=== PATIENT | female | born 1950 | race African-American/Black ===

== ENCOUNTER 2016-04-04 09:51 | Emergency (ER) | payer MEDICAID ==
[~2016-04-04] VITALS: Ht 160 cm; Wt 93.9 kg
[~2016-04-04 09:51] MED LIST: ALBUTEROL SULF8.5 GM INH; ATIVAN2 MG PO; AZITHROMYCIN250 MG ORAL; CEPHALEXIN500 MG ORAL; DICYCLOMINE HCL10 MG PO; GUAIFENESIN-CO118 M1 ORAL; HYDROCHLOROTH12.5 M2 ORAL; HYDROCHLOROTHIA25 MG PO; IBUPROFEN600 MG ORAL; MAGIC MOUTH WAS60 ML *; MECLIZINE HCL25 MG PO; MIRTAZAPINE30 MG PO; NEURONTIN300 MG ORAL; NORCO 5-325 TA1 EACH ORAL; PHENERGAN6.25 MG/5 ORAL; PROMETHAZINE-C118 M1 ORAL; TRAZODONE HCL150 MG ORAL; ZESTRIL5 MG PO; ZITHROMAX250 MG ORAL; ZOFRAN4 MG ORAL; ZOFRAN4 MG PO
[2016-04-04] MEDS ORDERED: IBUPROFEN600 MG ORAL (10:32)
[2016-04-04] MEDS ORDERED: ROBAXIN-750750 MG PO (10:32)
[2016-04-04 10:38] VITALS: BP 133/82
--- NOTE | 2016-04-04 10:39 | Emergency Room Report ---
History of Present Illness General Chief Complaint: Lower Extremity Injury Source: Patient Present Illness HPI Patient presents with complaints of left knee pain Patient had a fall last Wednesday In the laundry room Patient reports that she has fallen before but did not say anything With this experience patient reports the floor was wet She feels that the floor was also greasy And essentially slipped fell onto her left knee With pain to the medial aspect and also the upper calf area Patient was seen by her primary physician had x-rays ordered However those are pending and in the meanwhile patient presents for continued discomfort Denies any pelvic pain denies any ankle pain Denies any loss of consciousness Pain is 5-6/10 localized to the medial left knee and also the posterior proximal calf area Allergies: Coded Allergies: PENICILLINS (Verified Allergy, Severe, Hives, 03/21/14) Patient History Past Medical History: see triage record Pertinent Family History: none Reviewed Nursing Documentation: PMH: Agreed, PSxH: Agreed Nursing Documentation-PMH Past Medical History: No History, Except For Hx Cardiac Problems: Yes Hx Hypertension: Yes Hx COPD: Yes Hx Diabetes: Yes Hx Cancer: No Hx Gastrointestinal Problems: No Hx Neurological Problems: No Review of Systems All Other Systems: negative except mentioned in HPI Physical Exam Vital Signs Date Time Temp Pulse Resp B/P Pulse Ox O2 Delivery O2 Flow Rate FiO2 04/04/16 10:05 98.1 79 17 133/82 95 Room Air Sp02 EP Interpretation: reviewed, normal General Appearance: no apparent distress Head: normocephalic, atraumatic Eyes: bilateral eye EOMI, bilateral eye PERRL ENT: hearing grossly normal, normal pharynx, TMs + canals normal, uvula midline Neck: full range of motion, supple, no meningismus, no bony tend Respiratory: lungs clear, normal breath sounds, no rhonchi, no respiratory distress, no retraction, no accessory muscle use Cardiovascular #1: normal peripheral pulses, regular rate, rhythm, no edema, no gallop, no JVD, no murmur Gastrointestinal: normal bowel sounds, non tender, soft, no mass, no organomegaly, non-distended, no guarding, no hernia, no pulsatile mass, no rebound Genitourinary: no CVA tenderness Musculoskeletal: other - No obvious swelling or effusion, patient discomfort on palpation of the medial aspect of the knee, also approximately on the posterior calf no swelling or edema, full extension flexion at the knee is intact, however when the patient extends the leg she feels increased discomfort at the knee, Neurologic: oriented x3, responsive, composite engineer III-XII nml as tested, motor strength/ tone normal, sensory intact Psychiatric: mood/affect normal Skin: normal color, no rash, warm/dry, palpation normal Lymphatic: normal inspection, no adenopathy Medical Decision Making Diagnostic Impression: Primary Impression: Injury of lower extremity Additional Impression: left knee sprain ER Course Patient appears to have findings in line with a knee contusion and sprain Differential for fracture is low given lack of any ecchymosis or swelling for the past 7 days Consideration for DVT is also made However patient's mechanism sounds to be mechanical nature Patient was provided with anti-inflammatory muscle relaxers and will have initial conservative outpatient trial Last Vital Signs Date Time Temp Pulse Resp B/P Pulse Ox O2 Delivery O2 Flow Rate FiO2 04/04/16 10:05 98.1 79 17 133/82 95 Room Air Status: unchanged Disposition: HOME, SELF-CARE Condition: Stable Scripts Methocarbamol* (ROBAXIN-750*) 750 Mg Tablet 750 MG PO TID, #21 TAB 0 Refills Prov: RONAN RUSSO D.O. 04/04/16 Ibuprofen* (MOTRIN*) 600 Mg Tablet 600 MG ORAL Q8H Y for For Pain, #20 TAB 0 Refills Prov: RONAN RUSSO D.O. 04/04/16 Referrals: MITCH LONG (PCP) Patient Instructions: Knee Sprain, [id number]-fr-[id number] Additional Instructions: Patient is provided with the discharge instructions notified to follow up with primary doctor in the next 2-3 days otherwise return to the er with any worsening symptoms. RONAN RUSSO D.O. Apr 04, 2016 10:39
== END 2016-04-04 10:41 | disposition home or self-care (01) ==
LOC: EMR 10:24
DX: S83.92XA Sprain of unspecified site of left knee, initial encounter (principal); W01.0XXA Fall on same level from slipping, tripping and stumbling without subsequent striking against object, initial encounter; Y92.008 Other place in unspecified non-institutional (private) residence as the place of occurrence of the external cause; Y99.8 Other external cause status; I10 Essential (primary) hypertension; J44.9 Chronic obstructive pulmonary disease, unspecified; E11.9 Type 2 diabetes mellitus without complications; Z88.0 Allergy status to penicillin
CPT/HCPCS: 82962; 99284

== ENCOUNTER 2017-06-11 13:17 | Inpatient (IN) | payer MEDICAID ==
[~2017-06-11] VITALS: Ht 160 cm; Wt 90.7 kg
[~2017-06-11 13:17] MED LIST changes: +ROBAXIN-750750 MG PO
--- NOTE | 2017-06-11 14:08 | Emergency Room Report ---
History of Present Illness General Chief Complaint: Abnormal Labs Source: Patient Present Illness HPI The patient presents with 4 days of weakness and inability to eat. She's been vomiting and had some diarrhea. Also her blood sugars have been high. She is on metformin and a second oral medication. She's never been on insulin before. She's lost weight. She has polyuria and polydipsia. Denies any chest pain but has some lower abdominal pain which is intermittent. She denies any dysuria. She feels weak. She denies any fevers or chills. She also has a slight occipital headache. Pain in her abdomen is rated 8/10, crampy pressure. The patient has diabetes, hypertension and has had 4 stents in the past. She is anxious and depressed. No calf pain, edema. She has had abdominal pain in the past. Allergies: Coded Allergies: PENICILLINS (Verified Allergy, Severe, Hives, 03/21/14) Patient History Past Medical History: see triage record Past Surgical History: appy, hysterectomy Social History: Denies: smoking, alcohol use Social History Narrative at home Reviewed Nursing Documentation: PMH: Agreed; PSxH: Agreed Nursing Documentation-PMH Hx Cardiac Problems: Yes Hx Hypertension: Yes Hx COPD: Yes Hx Diabetes: Yes Hx Cancer: No Hx Gastrointestinal Problems: No Hx Neurological Problems: No Review of Systems All Other Systems: negative except mentioned in HPI Physical Exam Vital Signs Date Time Temp Pulse Resp B/P (MAP) Pulse Ox O2 Delivery O2 Flow Rate FiO2 06/11/17 13:28 98.6 93 20 137/89 99 Room Air 98.6 Sp02 EP Interpretation: reviewed, normal General Appearance: well appearing, no apparent distress, GCS 15 Head: normocephalic Eyes: bilateral eye normal inspection ENT: moist mucus membranes Neck: full range of motion, supple Respiratory: lungs clear, normal breath sounds Cardiovascular #1: regular rate, rhythm Cardiovascular #2: 2+ radial (R) Gastrointestinal: normal inspection, normal bowel sounds, no mass, non- distended, no guarding, no rebound, tenderness Musculoskeletal: back normal, gait/station normal, normal range of motion Neurologic: alert, oriented x3, grossly normal Psychiatric: depressed affect, anxious Skin: normal inspection, warm/dry Medical Decision Making Diagnostic Impression: Primary Impression: Hyperglycemia Additional Impressions: Persistent vomiting Abdominal pain Qualified Codes: R10.84 - Generalized abdominal pain Anxiety ER Course Patient presents with 4 days of vomiting, polyuria polydipsia and weight loss with high blood sugars. Differential includes occult infection, silent myocardial ischemia, gastroenteritis, pancreatitis amongst others. Evaluation will be with EKG, chest x-ray and labs. We will consider a possible abdominal film. The patient will be treated with IV hydration, Zofran and morphine. EKG without injury. CXR with atelectasis R base. Labs with hyperglycemia without acidosis. Improved glucose with NS, but need for insulin. Given IV. Patient still with headache and abdominal pain. Repeat morphine. Improved glucose. However, patient still nauseated and poorly tolerated oral intake. Concern over possible need for insulin and further treatment of nausea. Admit med, Dr. Lewis. (Per ins - start with observation.) Laboratory Tests Test 06/11/17 14:25 White Blood Count 10.4 K/UL (4.8-10.8) Red Blood Count 6.13 M/UL (4.20-5.40) H Hemoglobin 15.3 G/DL (12.0-16.0) Hematocrit 46.6 % (37.0-47.0) Mean Corpuscular Volume 76 FL (80-99) L Mean Corpuscular Hemoglobin 24.9 PG (27.0-31.0) L Mean Corpuscular Hemoglobin Concent 32.8 G/DL (32.0-36.0) Red Cell Distribution Width 12.7 % (11.6-14.8) Platelet Count 318 K/UL (150-450) Mean Platelet Volume 9.0 FL (6.5-10.1) Neutrophils (%) (Auto) 62.2 % (45.0-75.0) Lymphocytes (%) (Auto) 30.0 % (20.0-45.0) Monocytes (%) (Auto) 4.3 % (1.0-10.0) Eosinophils (%) (Auto) 1.8 % (0.0-3.0) Basophils (%) (Auto) 1.7 % (0.0-2.0) Prothrombin Time 8.9 SEC (9.30-11.50) L Prothrombin Time INR 0.9 (0.9-1.1) PTT 24 SEC (23-33) Urine Color Pale yellow Urine Appearance Clear Urine pH 5 (4.5-8.0) Urine Specific [place] 1.010 (1.005-1.035) Urine Protein Negative (NEGATIVE) Urine Glucose (UA) 4+ (NEGATIVE) H Urine Ketones Negative (NEGATIVE) Urine Occult Blood Negative (NEGATIVE) Urine Nitrite Negative (NEGATIVE) Urine Bilirubin Negative (NEGATIVE) Urine Urobilinogen Normal MG/DL (0.0-1.0) Urine Leukocyte Esterase Negative (NEGATIVE) Sodium Level 138 MMOL/L (136-145) Potassium Level 3.6 MMOL/L (3.5-5.1) Chloride Level 100 MMOL/L (98-107) Carbon Dioxide Level 28 MMOL/L (21-32) Anion Gap 10 mmol/L (5-15) Blood Urea Nitrogen 18 mg/dL (7-18) Creatinine 1.1 MG/DL (0.55-1.30) Estimate Glomerular Filtration Rate > 60 mL/min (>60) Glucose Level 370 MG/DL (74-106) H Calcium Level 9.6 MG/DL (8.5-10.1) Total Bilirubin 0.4 MG/DL (0.2-1.0) Aspartate Amino Transferase (AST) 9 U/L (15-37) L Alanine Aminotransferase (ALT) 23 U/L (12-78) Alkaline Phosphatase 115 U/L (46-116) Total Creatine Kinase 71 U/L (26-308) Troponin I 0.000 ng/mL (0.000-0.056) Pro-B-Type Natriuretic Peptide 36 pg/mL (0-125) Total Protein 7.8 G/DL (6.4-8.2) Albumin 3.8 G/DL (3.4-5.0) Globulin 4.0 g/dL Albumin/Globulin Ratio 0.9 (1.0-2.7) L Lipase 147 U/L (73-393) EKG Diagnostic Results Rate: normal Rhythm: NSR ST Segments: no acute changes Rhythm Strip Diag. Results EP Interpretation: yes Rhythm: NSR, no PVC's, no ectopy Chest X-Ray Diagnostic Results Chest X-Ray Diagnostic Results : Chest X-Ray Ordered: Yes # of Views/Limited/Complete: 1 View Indication: Other EP Interpretation: Yes Interpretation: no effusion, no pneumothorax, other - atelectasis R base Impression: Other Electronically Signed by: Electronically signed by Alejo Rodas MD Last Vital Signs Date Time Temp Pulse Resp B/P (MAP) Pulse Ox O2 Delivery O2 Flow Rate FiO2 06/12/17 00:00 98.9 83 20 127/64 98 98.9 06/11/17 19:10 Room Air Status: improved Disposition: ADMITTED INPATIENT Condition: Serious Alejo Rodas M.D. Jun 11, 2017 14:08
[2017-06-11] MEDS ORDERED: Morphine Sulfate 2mg/ml Inj IVP ONE (14:15)
[2017-06-11 14:37] LABS: APPEARANCE,URINE CLEAR; BILIRUBIN, URINE NEGATIVE (NEGATIVE); COLOR,URINE PALE YELLOW; GLUCOSE, URINE (UA) 4+ (NEGATIVE); KETONES,URINE NEGATIVE (NEGATIVE); LEUKOCYTE ESTERASE ,URINE NEGATIVE (NEGATIVE); NITRITE,URINE NEGATIVE (NEGATIVE); PH,URINE 5 (4.5-8.0); PROTEIN,URINE NEGATIVE (NEGATIVE); UROBILINOGEN,URINE NORMAL MG/DL (0.0-1.0)
[2017-06-11 14:40] LABS: BASOPHILS % (AUTO) 1.7 % (0.0-2.0); EOSINOPHILS % (AUTO) 1.8 % (0.0-3.0); HEMATOCRIT 46.6 % (37.0-47.0); HEMOGLOBIN 15.3 G/DL (12.0-16.0); MEAN CORPUSCULAR VOLUME 76 FL (80-99); MONOCYTES % (AUTO) 4.3 % (1.0-10.0); NEUTROPHILS % (AUTO) 62.2 % (45.0-75.0); PLATELET COUNT 318 K/UL (150-450); RED BLOOD COUNT 6.13 M/UL (4.20-5.40); RED CELL DISTRIBUTION WIDTH 12.7 % (11.6-14.8); WHITE BLOOD COUNT 10.4 K/UL (4.8-10.8)
[2017-06-11 14:50] LABS: INR 0.9 (0.9-1.1)
[2017-06-11 14:55] LABS: ANION GAP 10 mmol/L (5-15); BLOOD UREA NITROGEN 18 mg/dL (7-18); CALCIUM 9.6 MG/DL (8.5-10.1); CARBON DIOXIDE 28 MMOL/L (21-32); CHLORIDE 100 MMOL/L (98-107); CREATININE 1.1 MG/DL (0.55-1.30); POTASSIUM 3.6 MMOL/L (3.5-5.1); SODIUM 138 MMOL/L (136-145)
[2017-06-11] MEDS ORDERED: AMLODIPINE BESYL5 MG ORAL (14:55)
[2017-06-11] MEDS ORDERED: TRADJENTA5 MG PO (14:55)
[2017-06-11 15:00] VITALS: BP 143/81
[2017-06-11 15:05] LABS: ALANINE AMINOTRANSFERASE 23 U/L (12-78); ALBUMIN 3.8 G/DL (3.4-5.0); ALBUMIN/GLOBULIN RATIO 0.9 (1.0-2.7); ALKALINE PHOSPHATASE 115 U/L (46-116); ASPARTATE AMINO TRANSFERASE 9 U/L (15-37); BILIRUBIN,TOTAL 0.4 MG/DL (0.2-1.0); CREATINE KINASE 71 U/L (26-308)
[2017-06-11] MEDS ORDERED: OMEPRAZOLE40 M1 ORAL (15:06)
--- NOTE | 2017-06-11 15:15 | Diagnostic Imaging Report ---
Indication: Weakness Technique: XRAY Chest 1v Comparison: 06/02/2015 Findings: Right size and mediastinal contours stable. There is patchy right basilar opacity which may related to atelectasis however pneumonia cannot entirely excluded. There is no pleural effusion. No pneumothorax. No acute osseous abnormality is seen. Impression: Patchy right basilar opacity possibly related to atelectasis. Pneumonia not entirely excluded. Clinical correlation and follow-up exam recommended.
[2017-06-11] MEDS ORDERED: Morphine Sulfate 4mg/ml Inj IVP ONE (15:30)
[2017-06-11 16:00] VITALS: BP 139/77
[2017-06-11 17:00] VITALS: BP 139/77
[2017-06-11 19:10] VITALS: BP 143/81
[2017-06-11] MEDS ORDERED: Morphine Sulfate 2mg/ml Inj IVP PRN (20:30)
[2017-06-11] MEDS ORDERED: Miralax 17gm pkt ORAL PRN (20:30)
[2017-06-11] MEDS ORDERED: Milk of Magnesia 30ml Ud ORAL PRN (20:30)
[2017-06-11] MEDS ORDERED: Acetaminophen 650 MG SUPP RECTAL PRN ×2 (20:30)
[2017-06-11] MEDS: TraZODone 100mg tab ORAL SCH (21:23)
[2017-06-11] MEDS: Heparin 5000 units/ml inj SUBQ SCH (21:24)
[2017-06-11] MEDS: NovoLOG Insulin Flexpen SUBQ SCH (21:26)
[2017-06-11] MEDS: NS w/KCl 20mEq 1,000 ML IV SCH (21:26)
[2017-06-11] MEDS: Morphine Sulfate 4mg/ml Inj IVP PRN (21:45)
[2017-06-12] VITALS: BP 127/64
[2017-06-12 04:00] VITALS: BP 127/77
[2017-06-12] MEDS: NovoLOG Insulin Flexpen SUBQ SCH ×4 (05:57→21:03)
[2017-06-12 08:00] VITALS: BP 157/106
[2017-06-12] MEDS: Lisinopril 10mg tab ORAL SCH (09:03)
[2017-06-12] MEDS: Heparin 5000 units/ml inj SUBQ SCH ×2 (09:05→21:03)
[2017-06-12 10:06] LABS: BASOPHILS % (AUTO) 1.1 % (0.0-2.0); EOSINOPHILS % (AUTO) 1.9 % (0.0-3.0); HEMATOCRIT 40.3 % (37.0-47.0); HEMOGLOBIN 13.2 G/DL (12.0-16.0); LYMPHOCYTES % (AUTO) 42.5 % (20.0-45.0); MEAN CORPUSCULAR VOLUME 76 FL (80-99); MONOCYTES % (AUTO) 5.3 % (1.0-10.0); NEUTROPHILS % (AUTO) 49.3 % (45.0-75.0); PLATELET COUNT 272 K/UL (150-450); RED BLOOD COUNT 5.27 M/UL (4.20-5.40); RED CELL DISTRIBUTION WIDTH 12.8 % (11.6-14.8)
[2017-06-12 10:17] LABS: ALANINE AMINOTRANSFERASE 16 U/L (12-78); ALBUMIN 2.8 G/DL (3.4-5.0); ALBUMIN/GLOBULIN RATIO 0.8 (1.0-2.7); ALKALINE PHOSPHATASE 84 U/L (46-116); ANION GAP 8 mmol/L (5-15); ASPARTATE AMINO TRANSFERASE 13 U/L (15-37); BILIRUBIN,TOTAL 0.4 MG/DL (0.2-1.0); BLOOD UREA NITROGEN 18 mg/dL (7-18); CALCIUM 8.7 MG/DL (8.5-10.1); CARBON DIOXIDE 25 MMOL/L (21-32); CHLORIDE 108 MMOL/L (98-107); CREATININE 0.9 MG/DL (0.55-1.30); PHOSPHORUS 2.8 MG/DL (2.5-4.9); POTASSIUM 3.9 MMOL/L (3.5-5.1); SODIUM 141 MMOL/L (136-145)
[2017-06-12] MEDS: NS w/KCl 20mEq 1,000 ML IV SCH (10:20)
--- NOTE | 2017-06-12 10:49 | Diagnostic Imaging Report ---
Indication: Reason For Exam: ABD PAIN Technique: Ultrasound of the abdomen. Comparison: None Findings: Liver: The liver is normal in size and echogenicity. No focal abnormalities are noted. Gallbladder: The gallbladder is normal. No stones are visualized. The wall is not thickened. Common bile duct: Normal in size. Pancreas: The visualized portion of pancreas is normal in echogenicity. There are no masses. Kidneys: The kidneys are normal in size and echogenicity. There is no hydronephrosis. Spleen: The spleen is normal in size and echogenicity. Aorta: The visualized portion of the aorta is normal in caliber. IVC: The demonstrated portion of the inferior vena cava is normal. Impression: Normal ultrasound of the abdomen.
[2017-06-12 12:00] VITALS: BP 128/84
--- NOTE | 2017-06-12 13:02 | History & Physical ---
History and Physical History & Physicial Dictated for Int Med-Dr Lewis no. [id number]. ANTONIO CUTLER Jun 12, 2017 13:02
[2017-06-12 16:00] VITALS: BP 144/73
[2017-06-12] MEDS: Morphine Sulfate 4mg/ml Inj IVP PRN (16:56)
--- NOTE | 2017-06-12 17:00 | History and Physical Report ---
DATE OF ADMISSION: 06/11/2017 CHIEF COMPLAINT: The patient is a 66-year-old female who presents with chief complaint of increased thirst and increased frequency of urination. HISTORY OF PRESENT ILLNESS: The patient has history of diabetes. The patient began to experience increasing frequency of urination about 3 or 4 days ago. The patient also was drinking a lot more water than usual. The patient states her blood sugars were steadily increasing. The patient states her blood sugar yesterday reached 585. The patient presented to [facility]. The patient's fingerstick glucose was found to be greater than 500. The patient was admitted for uncontrolled diabetes and hyperglycemia. REVIEW OF SYSTEMS: CONSTITUTIONAL: The patient denies weight loss or weight gain. The patient denies fevers or chills. HEENT: The patient denies ear or throat pain. The patient denies headache. CARDIOVASCULAR: The patient denies palpitations or chest pain. CHEST: The patient denies wheeze or shortness of breath. ABDOMINAL: The patient does complain of decreased appetite. The patient denies nausea, vomiting, diarrhea, or constipation. GENITOURINARY: The patient denies dysuria. The patient does complain of increased frequency of urination as above. NEUROMUSCULAR: The patient denies seizures or generalized weakness. PAST MEDICAL HISTORY: Significant for: 1. Type 2 diabetes. 2. Hypertension. PAST SURGICAL HISTORY: Significant for appendectomy in 2014. CURRENT MEDICATIONS: 1. Amlodipine 5 mg p.o. daily. 2. Gabapentin 300 mg p.o. nightly. 3. Hydrochlorothiazide 25 mg one-half tablet p.o. daily. 4. Ibuprofen 600 mg p.o. q.6 hours p.r.n. 5. Tradjenta 5 mg p.o. daily. 6. Lisinopril 5 mg p.o. daily. 7. Lorazepam 2 mg p.o. nightly. 8. Mirtazapine 30 mg p.o. nightly. 9. Omeprazole 40 mg p.o. daily. 10. Trazodone 100 mg p.o. nightly. ALLERGIES: To penicillin. SOCIAL HISTORY: The patient is single and lives alone. The patient admits to tobacco use of one-quarter pack a day. The patient denies alcohol use. PHYSICAL EXAMINATION: VITAL SIGNS: Temperature 98.9, respirations 20, pulse 83, blood pressure 127/64. GENERAL: The patient is a well-developed, well-nourished female, in no apparent distress. HEENT: Eyes, pupils equal and responsive to light and accommodation. Extraocular movements are intact. NECK: Supple. No lymphadenopathy. CHEST: Lungs are clear to auscultation bilaterally without wheezes or rales. CARDIOVASCULAR: Regular rhythm and rate. S1, S2 normal without murmurs, rubs, or gallops. ABDOMEN: Soft, nontender, nondistended. Positive bowel sounds. No evidence of hepatosplenomegaly. Currently, no rebound or guarding noted. EXTREMITIES: Negative for clubbing, cyanosis, or edema. RECTAL: Refused. GENITAL: Refused. NEUROLOGIC: Cranial nerves II through XII are grossly intact without focal deficits. Motor strength is 5/5 bilaterally intact. Deep tendon reflexes are 2+, plantar. LABORATORY STUDIES: WBC 10.4, hemoglobin 15.2, hematocrit 46.6, platelets 218,000. Sodium 138, potassium 3.6, chloride 100, CO2 28, BUN 18, creatinine 1.1, glucose 370. ASSESSMENT: This is a 66-year-old female with: 1. Hyperglycemia. 2. Uncontrolled diabetes type 2. 3. Hypertension. 4. Polydipsia. 5. Polyuria. TREATMENT: 1. Uncontrolled diabetes/polydipsia/polyuria. An Endocrinology consultation has been obtained with Dr. Blaine Arceo. The patient has been started on NovoLog sliding scale. We will follow recommendation of Endocrinology. 2. Hypertension. Continue Norvasc and hydrochlorothiazide as above. Ignacio Mancera M.D. DR: Po JOB#: [id number] CC:
--- NOTE | 2017-06-12 18:08 | Cardiology Report ---
APPROVED REPORT EKG Measurement Heart [id number] DC [id number] Normal sinus rhythm Normal ECG
[2017-06-12 20:00] VITALS: BP 135/74
[2017-06-12] MEDS: TraZODone 100mg tab ORAL SCH (21:01)
[2017-06-13] VITALS: BP 112/68
[2017-06-13] MEDS: NS w/KCl 20mEq 1,000 ML IV SCH ×2 (00:18→13:00)
[2017-06-13] MEDS ORDERED: LORazepam 1mg tab ORAL PRN (00:45)
[2017-06-13 04:00] VITALS: BP 130/69
[2017-06-13] MEDS: NovoLOG Insulin Flexpen SUBQ SCH ×4 (06:12→20:36)
[2017-06-13 07:30] LABS: ANION GAP 9 mmol/L (5-15); BASOPHILS % (AUTO) 1.8 % (0.0-2.0); BLOOD UREA NITROGEN 15 mg/dL (7-18); CALCIUM 8.9 MG/DL (8.5-10.1); CARBON DIOXIDE 26 MMOL/L (21-32); CHLORIDE 106 MMOL/L (98-107); CREATININE 0.9 MG/DL (0.55-1.30); EOSINOPHILS % (AUTO) 2.1 % (0.0-3.0); HEMATOCRIT 41.5 % (37.0-47.0); HEMOGLOBIN 13.9 G/DL (12.0-16.0); LYMPHOCYTES % (AUTO) 41.2 % (20.0-45.0); MEAN CORPUSCULAR VOLUME 77 FL (80-99); MONOCYTES % (AUTO) 5.6 % (1.0-10.0); NEUTROPHILS % (AUTO) 49.4 % (45.0-75.0); PLATELET COUNT 251 K/UL (150-450); RED CELL DISTRIBUTION WIDTH 12.7 % (11.6-14.8); SODIUM 141 MMOL/L (136-145); WHITE BLOOD COUNT 9.4 K/UL (4.8-10.8)
[2017-06-13 08:00] VITALS: BP 137/78
[2017-06-13] MEDS: Lisinopril 10mg tab ORAL SCH (08:53)
[2017-06-13] MEDS: Heparin 5000 units/ml inj SUBQ SCH ×2 (08:55→20:29)
--- NOTE | 2017-06-13 11:31 | Internal Med Progress Note ---
Subjective Date of Service: Jun 13, 2017 Physician Name Antonio Cutler Attending Physician Joesph Lewis MD Current Medications Medications (Trade) Dose Ordered Sig/Travon Route PRN Reason Start Time Stop Time Status Last Admin Dose Admin Acetaminophen (Tylenol) 650 mg Q4H PRN ORAL Mild Pain (Pain Scale 1-3) 06/11/17 20:30 07/11/17 20:29 Acetaminophen (Tylenol) 650 mg Q4H PRN ORAL fever (temp>100.5F) 06/11/17 20:30 07/11/17 20:29 Acetaminophen (Tylenol) 650 mg Q4H PRN RECTAL Mild Pain (Pain Scale 1-3) 06/11/17 20:30 07/11/17 20:29 Acetaminophen (Tylenol) 650 mg Q4H PRN RECTAL fever (T>100.5F) 06/11/17 20:30 07/11/17 20:29 Amlodipine Besylate (Norvasc) 5 mg DAILY ORAL 06/11/17 21:00 07/11/17 20:59 06/13/17 08:52 Dextrose (Dextrose 50%) STAT PRN IV Hypoglycemia 06/11/17 20:30 07/11/17 20:29 Diphenhydramine HCl (Benadryl) 25 mg Q6H PRN ORAL Itching/Pruritis 06/11/17 20:30 07/11/17 20:29 Gabapentin (Neurontin) 300 mg BEDTIME ORAL 06/11/17 21:00 07/11/17 20:59 06/12/17 21:01 Heparin Sodium (Porcine) (Heparin 5000 units/ml) 5,000 units EVERY 12 HOURS SUBQ 06/11/17 21:00 07/11/17 20:59 06/13/17 08:55 Ibuprofen (Motrin) 600 mg Q8H PRN ORAL Breakthrough Pain 06/11/17 20:30 07/11/17 20:29 06/12/17 21:15 Insulin Aspart (NovoLOG) BEFORE MEALS AND HS SUBQ 06/11/17 21:00 07/11/17 20:59 06/13/17 06:12 Lisinopril (Zestril) 5 mg DAILY ORAL 06/12/17 09:00 07/12/17 08:59 06/13/17 08:53 Lorazepam (Ativan) 1 mg Q6H PRN ORAL For Anxiety 06/13/17 00:45 06/20/17 00:44 Magnesium Hydroxide (Mom) 30 ml HSPRN PRN ORAL Constipation 06/11/17 20:30 07/11/17 20:29 Mirtazapine (Remeron) 15 mg BEDTIME ORAL 06/13/17 21:00 07/13/17 20:59 Morphine Sulfate (Morphine Sulfate) 2 mg Q4H PRN IVP Moderate Pain (Pain Scale 4-6) 06/11/17 21:45 06/18/17 20:29 Morphine Sulfate (Morphine Sulfate) 4 mg Q4H PRN IVP Severe Pain (Pain Scale 7-10) 06/11/17 20:30 06/18/17 20:29 06/12/17 16:56 Ondansetron HCl (Zofran) 4 mg Q6H PRN IVP Nausea & Vomiting 06/11/17 20:30 07/11/17 20:29 Pantoprazole (Protonix) 40 mg DAILY ORAL 06/11/17 21:00 07/11/17 20:59 06/13/17 08:53 Polyethylene Glycol (Miralax) 17 gm HSPRN PRN ORAL Constipation 06/11/17 20:30 07/11/17 20:29 Sitagliptin Phosphate (Januvia) 100 mg ACBREAKFAST ORAL 06/13/17 06:30 07/13/17 06:29 06/13/17 06:10 Sodium Chloride 1,000 ml @ 75 mls/hr [id number] IV 06/11/17 21:00 07/11/17 20:59 06/13/17 00:18 Trazodone HCl (Desyrel) 100 mg BEDTIME ORAL 06/11/17 21:00 07/11/17 20:59 06/12/17 21:01 Allergies: Coded Allergies: PENICILLINS (Verified Allergy, Severe, Hives, 03/21/14) ROS Limited/Unobtainable: No Constitutional: Reports: no symptoms HEENT: Reports: no symptoms Cardiovascular: Reports: no symptoms Respiratory: Reports: no symptoms Gastrointestinal/Abdominal: Reports: no symptoms Genitourinary: Reports: no symptoms Neurologic/Psychiatric: Reports: no symptoms Subjective 66 YO F admitted with hyperglycemia. Await endocrinology consult. Cover for Int [place]-Dr Lewis Objective Last Vital Signs Date Time Temp Pulse Resp B/P (MAP) Pulse Ox O2 Delivery O2 Flow Rate FiO2 06/13/17 08:53 137/78 06/13/17 08:52 81 06/13/17 08:00 98.3 20 99 Room Air 98.3 General Appearance: WD/WN, no apparent distress, alert EENT: PERRL/EOMI, normal ENT inspection, TMs normal Neck: non-tender, normal alignment, supple, normal inspection Cardiovascular: normal peripheral pulses, normal rate, regular rhythm, no gallop/murmur, no JVD Respiratory/Chest: chest wall non-tender, lungs clear, normal breath sounds, no respiratory distress, no accessory muscle use Abdomen: normal bowel sounds, non tender, soft, no organomegaly, no mass Extremities: normal range of motion, non-tender Neurologic: pumper brewery II-XII grossly normal, no motor/sensory deficits Skin: normal pigmentation Laboratory Tests Test 06/13/17 05:45 White Blood Count 9.4 K/UL (4.8-10.8) Red Blood Count 5.40 M/UL (4.20-5.40) Hemoglobin 13.9 G/DL (12.0-16.0) Hematocrit 41.5 % (37.0-47.0) Mean Corpuscular Volume 77 FL (80-99) L Mean Corpuscular Hemoglobin 25.7 PG (27.0-31.0) L Mean Corpuscular Hemoglobin Concent 33.4 G/DL (32.0-36.0) Red Cell Distribution Width 12.7 % (11.6-14.8) Platelet Count 251 K/UL (150-450) Mean Platelet Volume 8.8 FL (6.5-10.1) Neutrophils (%) (Auto) 49.4 % (45.0-75.0) Lymphocytes (%) (Auto) 41.2 % (20.0-45.0) Monocytes (%) (Auto) 5.6 % (1.0-10.0) Eosinophils (%) (Auto) 2.1 % (0.0-3.0) Basophils (%) (Auto) 1.8 % (0.0-2.0) Sodium Level 141 MMOL/L (136-145) Potassium Level 4.0 MMOL/L (3.5-5.1) Chloride Level 106 MMOL/L (98-107) Carbon Dioxide Level 26 MMOL/L (21-32) Anion Gap 9 mmol/L (5-15) Blood Urea Nitrogen 15 mg/dL (7-18) Creatinine 0.9 MG/DL (0.55-1.30) Estimat Glomerular Filtration Rate > 60 mL/min (>60) Glucose Level 174 MG/DL (74-106) H Calcium Level 8.9 MG/DL (8.5-10.1) Intake and Output 06/12/17 06/13/17 19:00 07:00 Intake Total 225 ml 550 ml Balance 225 ml 550 ml IV Total 225 ml 550 ml # Voids 3 3 Assessment/Plan Problem List: (1) Diabetes mellitus type II, uncontrolled Assessment & Plan: Better control. Continue januvia and novolog sliding scale. Add metformin. Await endo consult. (2) HTN (hypertension) Assessment & Plan: Continue zesteril and novolog (3) Hyperglycemia Status: not improved ANTONIO CUTLER Jun 13, 2017 11:31
[2017-06-13 12:02] VITALS: BP 111/64
[2017-06-13] MEDS: metFORMIN 500mg tab ORAL SCH ×2 (12:09→17:12)
[2017-06-13] MEDS: Morphine Sulfate 4mg/ml Inj IVP PRN ×2 (12:10→20:16)
[2017-06-13 16:03] VITALS: BP 114/91
[2017-06-13] MEDS: Megace 400mg/10ml Susp ORAL SCH (17:12)
[2017-06-13 20:00] VITALS: BP 102/60
[2017-06-13] MEDS: TraZODone 100mg tab ORAL SCH (20:14)
[2017-06-14] VITALS: BP 98/58
[2017-06-14] MEDS: NS w/KCl 20mEq 1,000 ML IV SCH ×2 (02:20→15:40)
[2017-06-14 03:49] VITALS: BP 111/66
[2017-06-14] MEDS: metFORMIN 500mg tab ORAL SCH ×2 (06:15→12:01)
[2017-06-14] MEDS: NovoLOG Insulin Flexpen SUBQ SCH ×4 (06:20→20:53)
[2017-06-14 06:30] LABS: BASOPHILS % (AUTO) 2.3 % (0.0-2.0); EOSINOPHILS % (AUTO) 1.5 % (0.0-3.0); HEMATOCRIT 40.5 % (37.0-47.0); HEMOGLOBIN 13.3 G/DL (12.0-16.0); LYMPHOCYTES % (AUTO) 36.5 % (20.0-45.0); MEAN CORPUSCULAR VOLUME 77 FL (80-99); MONOCYTES % (AUTO) 6.2 % (1.0-10.0); NEUTROPHILS % (AUTO) 53.5 % (45.0-75.0); PLATELET COUNT 238 K/UL (150-450); RED BLOOD COUNT 5.28 M/UL (4.20-5.40); RED CELL DISTRIBUTION WIDTH 12.7 % (11.6-14.8); WHITE BLOOD COUNT 10.3 K/UL (4.8-10.8)
[2017-06-14 07:42] LABS: ANION GAP 10 mmol/L (5-15); BLOOD UREA NITROGEN 18 mg/dL (7-18); CALCIUM 8.9 MG/DL (8.5-10.1); CARBON DIOXIDE 24 MMOL/L (21-32); CHLORIDE 106 MMOL/L (98-107); POTASSIUM 3.5 MMOL/L (3.5-5.1); SODIUM 140 MMOL/L (136-145)
[2017-06-14 08:00] VITALS: BP 114/65
[2017-06-14] MEDS: Megace 400mg/10ml Susp ORAL SCH (09:28)
[2017-06-14] MEDS: Lisinopril 10mg tab ORAL SCH (09:29)
[2017-06-14] MEDS: Heparin 5000 units/ml inj SUBQ SCH ×2 (09:36→20:51)
[2017-06-14 12:00] VITALS: BP 106/60
--- NOTE | 2017-06-14 12:17 | Internal Med Progress Note ---
Subjective Date of Service: Jun 14, 2017 Physician Name Cutler,Antonio Attending Physician Joesph Lewis MD Current Medications Medications (Trade) Dose Ordered Sig/Travon Route PRN Reason Start Time Stop Time Status Last Admin Dose Admin Acetaminophen (Tylenol) 650 mg Q4H PRN ORAL Mild Pain (Pain Scale 1-3) 06/11/17 20:30 07/11/17 20:29 Acetaminophen (Tylenol) 650 mg Q4H PRN ORAL fever (temp>100.5F) 06/11/17 20:30 07/11/17 20:29 Acetaminophen (Tylenol) 650 mg Q4H PRN RECTAL Mild Pain (Pain Scale 1-3) 06/11/17 20:30 07/11/17 20:29 Acetaminophen (Tylenol) 650 mg Q4H PRN RECTAL fever (T>100.5F) 06/11/17 20:30 07/11/17 20:29 Amlodipine Besylate (Norvasc) 5 mg DAILY ORAL 06/11/17 21:00 07/11/17 20:59 06/14/17 09:29 Dextrose (Dextrose 50%) STAT PRN IV Hypoglycemia 06/11/17 20:30 07/11/17 20:29 Diphenhydramine HCl (Benadryl) 25 mg Q6H PRN ORAL Itching/Pruritis 06/11/17 20:30 07/11/17 20:29 Gabapentin (Neurontin) 300 mg BEDTIME ORAL 06/11/17 21:00 07/11/17 20:59 06/13/17 20:15 Heparin Sodium (Porcine) (Heparin 5000 units/ml) 5,000 units EVERY 12 HOURS SUBQ 06/11/17 21:00 07/11/17 20:59 06/14/17 09:36 Ibuprofen (Motrin) 600 mg Q8H PRN ORAL Breakthrough Pain 06/11/17 20:30 07/11/17 20:29 06/12/17 21:15 Insulin Aspart (NovoLOG) BEFORE MEALS AND HS SUBQ 06/11/17 21:00 07/11/17 20:59 06/14/17 12:04 Lisinopril (Zestril) 5 mg DAILY ORAL 06/12/17 09:00 07/12/17 08:59 06/14/17 09:29 Lorazepam (Ativan) 1 mg Q6H PRN ORAL For Anxiety 06/13/17 00:45 06/20/17 00:44 Magnesium Hydroxide (Mom) 30 ml HSPRN PRN ORAL Constipation 06/11/17 20:30 07/11/17 20:29 Megestrol Acetate (Megace) 400 mg TWICE A DAY ORAL 06/13/17 18:00 07/13/17 17:59 06/14/17 09:28 Metformin HCl (Glucophage) 500 mg TIAC ORAL 06/13/17 12:00 07/13/17 11:59 06/14/17 12:01 Metoclopramide HCl (Reglan) 10 mg THREE TIMES A DAY ORAL 06/13/17 13:00 07/13/17 12:59 06/14/17 12:01 Mirtazapine (Remeron) 15 mg BEDTIME ORAL 06/13/17 21:00 07/13/17 20:59 06/13/17 20:14 Morphine Sulfate (Morphine Sulfate) 2 mg Q4H PRN IVP Moderate Pain (Pain Scale 4-6) 06/11/17 21:45 06/18/17 20:29 06/13/17 20:16 Morphine Sulfate (Morphine Sulfate) 4 mg Q4H PRN IVP Severe Pain (Pain Scale 7-10) 06/11/17 20:30 06/18/17 20:29 06/13/17 12:10 Ondansetron HCl (Zofran) 4 mg Q6H PRN IVP Nausea & Vomiting 06/11/17 20:30 07/11/17 20:29 Pantoprazole (Protonix) 40 mg DAILY ORAL 06/11/17 21:00 07/11/17 20:59 06/14/17 09:28 Polyethylene Glycol (Miralax) 17 gm HSPRN PRN ORAL Constipation 06/11/17 20:30 07/11/17 20:29 Sitagliptin Phosphate (Januvia) 100 mg ACBREAKFAST ORAL 06/13/17 06:30 07/13/17 06:29 06/14/17 06:15 Sodium Chloride 1,000 ml @ 75 mls/hr [id number] IV 06/11/17 21:00 07/11/17 20:59 06/13/17 00:18 Trazodone HCl (Desyrel) 100 mg BEDTIME ORAL 06/11/17 21:00 07/11/17 20:59 06/13/17 20:14 Allergies: Coded Allergies: PENICILLINS (Verified Allergy, Severe, Hives, 03/21/14) ROS Limited/Unobtainable: No Constitutional: Reports: no symptoms HEENT: Reports: no symptoms Cardiovascular: Reports: no symptoms Respiratory: Reports: no symptoms Gastrointestinal/Abdominal: Reports: no symptoms Genitourinary: Reports: no symptoms Neurologic/Psychiatric: Reports: no symptoms Subjective 66 YO F admitted with hyperglycemia. Await endocrinology consult. Cover for Int [place]-Dr Lewis Objective Last Vital Signs Date Time Temp Pulse Resp B/P (MAP) Pulse Ox O2 Delivery O2 Flow Rate FiO2 06/14/17 09:29 111/66 06/14/17 09:29 78 06/14/17 08:00 98.0 17 97 Room Air 98.0 Laboratory Tests Test 06/14/17 05:40 White Blood Count 10.3 K/UL (4.8-10.8) Red Blood Count 5.28 M/UL (4.20-5.40) Hemoglobin 13.3 G/DL (12.0-16.0) Hematocrit 40.5 % (37.0-47.0) Mean Corpuscular Volume 77 FL (80-99) L Mean Corpuscular Hemoglobin 25.2 PG (27.0-31.0) L Mean Corpuscular Hemoglobin Concent 32.9 G/DL (32.0-36.0) Red Cell Distribution Width 12.7 % (11.6-14.8) Platelet Count 238 K/UL (150-450) Mean Platelet Volume 9.4 FL (6.5-10.1) Neutrophils (%) (Auto) 53.5 % (45.0-75.0) Lymphocytes (%) (Auto) 36.5 % (20.0-45.0) Monocytes (%) (Auto) 6.2 % (1.0-10.0) Eosinophils (%) (Auto) 1.5 % (0.0-3.0) Basophils (%) (Auto) 2.3 % (0.0-2.0) H Sodium Level 140 MMOL/L (136-145) Potassium Level 3.5 MMOL/L (3.5-5.1) Chloride Level 106 MMOL/L (98-107) Carbon Dioxide Level 24 MMOL/L (21-32) Anion Gap 10 mmol/L (5-15) Blood Urea Nitrogen 18 mg/dL (7-18) Creatinine 1.0 MG/DL (0.55-1.30) Estimat Glomerular Filtration Rate > 60 mL/min (>60) Glucose Level 239 MG/DL (74-106) H Calcium Level 8.9 MG/DL (8.5-10.1) Intake and Output 06/13/17 06/14/17 19:00 07:00 Intake Total 1110 ml Balance 1110 ml Intake Oral 960 ml IV Total 150 ml # Voids 4 Objective General Appearance: WD/WN, no apparent distress, alert EENT: PERRL/EOMI, normal ENT inspection, TMs normal Neck: non-tender, normal alignment, supple, normal inspection Cardiovascular: normal peripheral pulses, normal rate, regular rhythm, no gallop/murmur, no JVD Respiratory/Chest: chest wall non-tender, lungs clear, normal breath sounds, no respiratory distress, no accessory muscle use Abdomen: normal bowel sounds, non tender, soft, no organomegaly, no mass Extremities: normal range of motion, non-tender 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 Continue januvia and novolog sliding scale. Add metformin. Await endo consult. (2) HTN (hypertension) Assessment & Plan: Continue Zestril and norvasc (3) Hyperglycemia Status: progressing ANTONIO CUTLER Jun 14, 2017 12:17
--- NOTE | 2017-06-14 14:48 | General Progress Note ---
Assessment/Plan Problem List: (1) Diabetes mellitus type II, uncontrolled ICD Codes: E11.65 - Type 2 diabetes mellitus with hyperglycemia SNOMED: 76846020, 611661218 (2) HTN (hypertension) ICD Codes: I10 - Essential (primary) hypertension SNOMED: 06281548 (3) Abdominal pain ICD Codes: R10.9 - Unspecified abdominal pain SNOMED: 91075660 Qualifiers: Qualified Codes: R10.84 - Generalized abdominal pain (4) Anxiety ICD Codes: F41.9 - Anxiety disorder, unspecified SNOMED: 94430551 Assessment/Plan dc all laxatives fu labs tight BS control needs out patient fu for screening colonoscopy Subjective ROS Limited/Unobtainable: Yes Allergies: Coded Allergies: PENICILLINS (Verified Allergy, Severe, Hives, 03/21/14) Subjective diarrhea Objective Last 24 Hour Vital Signs Date Time Temp Pulse Resp B/P (MAP) Pulse Ox O2 Delivery O2 Flow Rate FiO2 06/14/17 12:00 98.1 83 18 106/60 96 Room Air 98.1 06/14/17 09:29 111/66 06/14/17 09:29 78 111/66 06/14/17 08:00 98.0 77 17 114/65 97 Room Air 98.0 06/14/17 03:49 98.2 78 18 111/66 97 98.2 06/14/17 00:00 98.9 52 20 98/58 100 98.9 06/13/17 20:00 98.6 79 20 102/60 96 98.6 06/13/17 16:03 98.6 73 20 114/91 98 Room Air 98.6 Intake and Output 06/13/17 06/14/17 19:00 07:00 Intake Total 1110 ml Balance 1110 ml Intake Oral 960 ml IV Total 150 ml # Voids 4 Laboratory Tests 06/14/17 05:40: White Blood Count 10.3, Red Blood Count 5.28, Hemoglobin 13.3, Hematocrit 40.5, Mean Corpuscular Volume 77L, Mean Corpuscular Hemoglobin 25.2L, Mean Corpuscular Hemoglobin Concent 32.9, Red Cell Distribution Width 12.7, Platelet Count 238, Mean Platelet Volume 9.4, Neutrophils (%) (Auto) 53.5, Lymphocytes (% ) (Auto) 36.5, Monocytes (%) (Auto) 6.2, Eosinophils (%) (Auto) 1.5, Basophils ( %) (Auto) 2.3H, Sodium Level 140, Potassium Level 3.5, Chloride Level 106, Carbon Dioxide Level 24, Anion Gap 10, Blood Urea Nitrogen 18, Creatinine 1.0, Estimat Glomerular Filtration Rate > 60, Glucose Level 239H, Calcium Level 8.9 Height (Feet): 5 Height (Inches): 3.00 Weight (Pounds): 200 General Appearance: alert EENT: normal ENT inspection Neck: supple Cardiovascular: normal rate Respiratory/Chest: lungs clear Abdomen: normal bowel sounds, non tender, soft Extremities: non-tender ORQUIDEA BLAIR Jun 14, 2017 14:48
[2017-06-14] MEDS ORDERED: Lomotil 2.5mg tab ORAL PRN (15:45)
--- NOTE | 2017-06-14 15:46 | Pulmonology Progress Note ---
Assessment/Plan Problems: (1) Diabetes mellitus type II, uncontrolled (2) HTN (hypertension) (3) Abdominal pain (4) Persistent vomiting (5) Anxiety (6) Neuropathy Assessment/Plan add levemir dc metformin b/o diarrhea dc iv fluids lomotil for diarrhea prn diabetes teaching Subjective ROS Limited/Unobtainable: No Constitutional: Reports: no symptoms HEENT: Repors: no symptoms Respiratory: Reports: no symptoms Allergies: Coded Allergies: PENICILLINS (Verified Allergy, Severe, Hives, 03/21/14) Objective Last 24 Hour Vital Signs Date Time Temp Pulse Resp B/P (MAP) Pulse Ox O2 Delivery O2 Flow Rate FiO2 06/14/17 12:00 98.1 83 18 106/60 96 Room Air 98.1 06/14/17 09:29 111/66 06/14/17 09:29 78 111/66 06/14/17 08:00 98.0 77 17 114/65 97 Room Air 98.0 06/14/17 03:49 98.2 78 18 111/66 97 98.2 06/14/17 00:00 98.9 52 20 98/58 100 98.9 06/13/17 20:00 98.6 79 20 102/60 96 98.6 06/13/17 16:03 98.6 73 20 114/91 98 Room Air 98.6 Intake and Output 06/13/17 06/14/17 19:00 07:00 Intake Total 1110 ml Balance 1110 ml Intake Oral 960 ml IV Total 150 ml # Voids 4 General Appearance: WD/WN HEENT: normocephalic Respiratory/Chest: chest wall non-tender, lungs clear Cardiovascular: normal rate Abdomen: normal bowel sounds, soft, non tender, no scars Genitourinary: normal external genitalia Extremities: no clubbing Skin: no rash 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 Laboratory Tests 06/14/17 05:40: White Blood Count 10.3, Red Blood Count 5.28, Hemoglobin 13.3, Hematocrit 40.5, Mean Corpuscular Volume 77L, Mean Corpuscular Hemoglobin 25.2L, Mean Corpuscular Hemoglobin Concent 32.9, Red Cell Distribution Width 12.7, Platelet Count 238, Mean Platelet Volume 9.4, Neutrophils (%) (Auto) 53.5, Lymphocytes (% ) (Auto) 36.5, Monocytes (%) (Auto) 6.2, Eosinophils (%) (Auto) 1.5, Basophils ( %) (Auto) 2.3H, Sodium Level 140, Potassium Level 3.5, Chloride Level 106, Carbon Dioxide Level 24, Anion Gap 10, Blood Urea Nitrogen 18, Creatinine 1.0, Estimat Glomerular Filtration Rate > 60, Glucose Level 239H, Calcium Level 8.9 Current Medications Medications (Trade) Dose Ordered Sig/Travon Route PRN Reason Start Time Stop Time Status Last Admin Dose Admin Acetaminophen (Tylenol) 650 mg Q4H PRN ORAL Mild Pain (Pain Scale 1-3) 06/11/17 20:30 07/11/17 20:29 Acetaminophen (Tylenol) 650 mg Q4H PRN ORAL fever (temp>100.5F) 06/11/17 20:30 07/11/17 20:29 Acetaminophen (Tylenol) 650 mg Q4H PRN RECTAL Mild Pain (Pain Scale 1-3) 06/11/17 20:30 07/11/17 20:29 Acetaminophen (Tylenol) 650 mg Q4H PRN RECTAL fever (T>100.5F) 06/11/17 20:30 07/11/17 20:29 Amlodipine Besylate (Norvasc) 5 mg DAILY ORAL 06/11/17 21:00 07/11/17 20:59 06/14/17 09:29 Dextrose (Dextrose 50%) STAT PRN IV Hypoglycemia 06/11/17 20:30 07/11/17 20:29 Diphenhydramine HCl (Benadryl) 25 mg Q6H PRN ORAL Itching/Pruritis 06/11/17 20:30 07/11/17 20:29 Gabapentin (Neurontin) 300 mg BEDTIME ORAL 06/11/17 21:00 07/11/17 20:59 06/13/17 20:15 Heparin Sodium (Porcine) (Heparin 5000 units/ml) 5,000 units EVERY 12 HOURS SUBQ 06/11/17 21:00 07/11/17 20:59 06/14/17 09:36 Ibuprofen (Motrin) 600 mg Q8H PRN ORAL Breakthrough Pain 06/11/17 20:30 07/11/17 20:29 06/12/17 21:15 Insulin Aspart (NovoLOG) BEFORE MEALS AND HS SUBQ 06/11/17 21:00 07/11/17 20:59 06/14/17 12:04 Lisinopril (Zestril) 5 mg DAILY ORAL 06/12/17 09:00 07/12/17 08:59 06/14/17 09:29 Lorazepam (Ativan) 1 mg Q6H PRN ORAL For Anxiety 06/13/17 00:45 06/20/17 00:44 Metformin HCl (Glucophage) 500 mg TIAC ORAL 06/13/17 12:00 07/13/17 11:59 06/14/17 12:01 Metoclopramide HCl (Reglan) 10 mg THREE TIMES A DAY ORAL 06/13/17 13:00 07/13/17 12:59 06/14/17 12:01 Mirtazapine (Remeron) 15 mg BEDTIME ORAL 06/13/17 21:00 07/13/17 20:59 06/13/17 20:14 Morphine Sulfate (Morphine Sulfate) 2 mg Q4H PRN IVP Moderate Pain (Pain Scale 4-6) 06/11/17 21:45 06/18/17 20:29 06/13/17 20:16 Morphine Sulfate (Morphine Sulfate) 4 mg Q4H PRN IVP Severe Pain (Pain Scale 7-10) 06/11/17 20:30 06/18/17 20:29 06/13/17 12:10 Ondansetron HCl (Zofran) 4 mg Q6H PRN IVP Nausea & Vomiting 06/11/17 20:30 07/11/17 20:29 Pantoprazole (Protonix) 40 mg DAILY ORAL 06/11/17 21:00 07/11/17 20:59 06/14/17 09:28 Sitagliptin Phosphate (Januvia) 100 mg ACBREAKFAST ORAL 06/13/17 06:30 07/13/17 06:29 06/14/17 06:15 Sodium Chloride 1,000 ml @ 75 mls/hr [id number] IV 06/11/17 21:00 07/11/17 20:59 06/13/17 00:18 Trazodone HCl (Desyrel) 100 mg BEDTIME ORAL 06/11/17 21:00 07/11/17 20:59 06/13/17 20:14 Xochitl Zimmerman MD Jun 14, 2017 15:46
[2017-06-14 16:00] VITALS: BP 113/67
[2017-06-14 20:00] VITALS: BP 133/76
[2017-06-14] MEDS: TraZODone 100mg tab ORAL SCH (20:29)
[2017-06-14] MEDS: Levemir Flexpen SUBQ SCH (20:52)
[2017-06-14] MEDS: Morphine Sulfate 4mg/ml Inj IVP PRN (23:14)
[2017-06-15] VITALS: BP 110/63
[2017-06-15 04:00] VITALS: BP 115/58
[2017-06-15] MEDS: NovoLOG Insulin Flexpen SUBQ SCH ×2 (06:44→12:31)
[2017-06-15 08:00] VITALS: BP 133/82
--- NOTE | 2017-06-15 08:10 | General Progress Note ---
Assessment/Plan Problem List: (1) Diabetes mellitus type II, uncontrolled ICD Codes: E11.65 - Type 2 diabetes mellitus with hyperglycemia SNOMED: 47843259, 375755796 (2) HTN (hypertension) ICD Codes: I10 - Essential (primary) hypertension SNOMED: 51294888 (3) Abdominal pain ICD Codes: R10.9 - Unspecified abdominal pain SNOMED: 77855925 Qualifiers: Qualified Codes: R10.84 - Generalized abdominal pain (4) Anxiety ICD Codes: F41.9 - Anxiety disorder, unspecified SNOMED: 49330178 Assessment/Plan off all laxatives fu labs tight BS control needs out patient fu for screening colonoscopy Subjective ROS Limited/Unobtainable: Yes Allergies: Coded Allergies: PENICILLINS (Verified Allergy, Severe, Hives, 03/21/14) Subjective no event Objective Last 24 Hour Vital Signs Date Time Temp Pulse Resp B/P (MAP) Pulse Ox O2 Delivery O2 Flow Rate FiO2 06/15/17 04:00 98.2 72 20 115/58 96 98.2 06/15/17 00:00 97.9 77 20 110/63 96 97.9 06/14/17 20:00 98.1 82 20 133/76 96 98.1 06/14/17 16:00 97.4 87 17 113/67 98 Room Air 97.4 06/14/17 12:00 98.1 83 18 106/60 96 Room Air 98.1 06/14/17 09:29 111/66 06/14/17 09:29 78 111/66 Intake and Output 06/14/17 06/15/17 19:00 07:00 Intake Total 810 ml Balance 810 ml Intake Oral 360 ml IV Total 450 ml # Voids 4 2 Height (Feet): 5 Height (Inches): 3.00 Weight (Pounds): 200 General Appearance: alert EENT: normal ENT inspection Neck: supple Cardiovascular: normal rate Respiratory/Chest: lungs clear Abdomen: normal bowel sounds, non tender, soft Extremities: non-tender ORQUIDEA BLAIR Jun 15, 2017 08:10
[2017-06-15] MEDS: Lisinopril 10mg tab ORAL SCH (09:13)
[2017-06-15] MEDS: Levemir Flexpen SUBQ SCH (09:15)
[2017-06-15] MEDS: Heparin 5000 units/ml inj SUBQ SCH (09:15)
[2017-06-15 10:25] LABS: BASOPHILS % (AUTO) 0.9 % (0.0-2.0); EOSINOPHILS % (AUTO) 2.1 % (0.0-3.0); HEMOGLOBIN 14.5 G/DL (12.0-16.0); LYMPHOCYTES % (AUTO) 34.9 % (20.0-45.0); MEAN CORPUSCULAR VOLUME 76 FL (80-99); MONOCYTES % (AUTO) 6.5 % (1.0-10.0); NEUTROPHILS % (AUTO) 55.6 % (45.0-75.0); PLATELET COUNT 271 K/UL (150-450); RED BLOOD COUNT 5.65 M/UL (4.20-5.40); RED CELL DISTRIBUTION WIDTH 12.5 % (11.6-14.8); WHITE BLOOD COUNT 10.4 K/UL (4.8-10.8)
[2017-06-15 11:06] LABS: ALANINE AMINOTRANSFERASE 16 U/L (12-78); ALBUMIN 3.1 G/DL (3.4-5.0); ALBUMIN/GLOBULIN RATIO 0.8 (1.0-2.7); ALKALINE PHOSPHATASE 85 U/L (46-116); ANION GAP 10 mmol/L (5-15); ASPARTATE AMINO TRANSFERASE 17 U/L (15-37); BILIRUBIN,TOTAL 0.4 MG/DL (0.2-1.0); BLOOD UREA NITROGEN 16 mg/dL (7-18); CARBON DIOXIDE 21 MMOL/L (21-32); CHLORIDE 107 MMOL/L (98-107); CREATININE 0.9 MG/DL (0.55-1.30); PHOSPHORUS 3.1 MG/DL (2.5-4.9); SODIUM 137 MMOL/L (136-145)
[2017-06-15 12:00] VITALS: BP 121/75
--- NOTE | 2017-06-15 15:33 | Internal Med Progress Note ---
Subjective Date of Service: Jun 15, 2017 Physician Name Ignacio Cutler Attending Physician Joesph Lewis MD Current Medications Medications (Trade) Dose Ordered Sig/Travon Route PRN Reason Start Time Stop Time Status Last Admin Dose Admin Acetaminophen (Tylenol) 650 mg Q4H PRN ORAL Mild Pain (Pain Scale 1-3) 06/11/17 20:30 07/11/17 20:29 Acetaminophen (Tylenol) 650 mg Q4H PRN ORAL fever (temp>100.5F) 06/11/17 20:30 07/11/17 20:29 Acetaminophen (Tylenol) 650 mg Q4H PRN RECTAL Mild Pain (Pain Scale 1-3) 06/11/17 20:30 07/11/17 20:29 Acetaminophen (Tylenol) 650 mg Q4H PRN RECTAL fever (T>100.5F) 06/11/17 20:30 07/11/17 20:29 Amlodipine Besylate (Norvasc) 5 mg DAILY ORAL 06/11/17 21:00 07/11/17 20:59 06/15/17 09:13 Dextrose (Dextrose 50%) STAT PRN IV Hypoglycemia 06/11/17 20:30 07/11/17 20:29 Diphenhydramine HCl (Benadryl) 25 mg Q6H PRN ORAL Itching/Pruritis 06/11/17 20:30 07/11/17 20:29 Diphenoxylate HCl/ Atropine (Lomotil) 2.5 mg Q4H PRN ORAL Diarrhea 06/14/17 15:45 07/14/17 15:44 Gabapentin (Neurontin) 300 mg BEDTIME ORAL 06/11/17 21:00 07/11/17 20:59 06/14/17 20:30 Heparin Sodium (Porcine) (Heparin 5000 units/ml) 5,000 units EVERY 12 HOURS SUBQ 06/11/17 21:00 07/11/17 20:59 06/15/17 09:15 Ibuprofen (Motrin) 600 mg Q8H PRN ORAL Breakthrough Pain 06/11/17 20:30 07/11/17 20:29 06/12/17 21:15 Insulin Aspart (NovoLOG) BEFORE MEALS AND HS SUBQ 06/11/17 21:00 07/11/17 20:59 06/15/17 12:31 Insulin Detemir (Levemir) 7 units EVERY 12 HOURS SUBQ 06/14/17 21:00 07/14/17 20:59 06/15/17 09:15 Lisinopril (Zestril) 5 mg DAILY ORAL 06/12/17 09:00 07/12/17 08:59 06/15/17 09:13 Lorazepam (Ativan) 1 mg Q6H PRN ORAL For Anxiety 06/13/17 00:45 06/20/17 00:44 Metoclopramide HCl (Reglan) 10 mg THREE TIMES A DAY ORAL 06/13/17 13:00 07/13/17 12:59 06/15/17 12:34 Mirtazapine (Remeron) 15 mg BEDTIME ORAL 06/13/17 21:00 07/13/17 20:59 06/14/17 20:30 Morphine Sulfate (Morphine Sulfate) 2 mg Q4H PRN IVP Moderate Pain (Pain Scale 4-6) 06/11/17 21:45 06/18/17 20:29 06/14/17 23:14 Morphine Sulfate (Morphine Sulfate) 4 mg Q4H PRN IVP Severe Pain (Pain Scale 7-10) 06/11/17 20:30 06/18/17 20:29 06/13/17 12:10 Ondansetron HCl (Zofran) 4 mg Q6H PRN IVP Nausea & Vomiting 06/11/17 20:30 07/11/17 20:29 Pantoprazole (Protonix) 40 mg DAILY ORAL 06/11/17 21:00 07/11/17 20:59 06/15/17 09:13 Sitagliptin Phosphate (Januvia) 100 mg ACBREAKFAST ORAL 06/13/17 06:30 07/13/17 06:29 06/15/17 06:35 Trazodone HCl (Desyrel) 100 mg BEDTIME ORAL 06/11/17 21:00 07/11/17 20:59 06/14/17 20:29 Allergies: Coded Allergies: PENICILLINS (Verified Allergy, Severe, Hives, 03/21/14) ROS Limited/Unobtainable: No Constitutional: Reports: no symptoms HEENT: Reports: no symptoms Cardiovascular: Reports: no symptoms Respiratory: Reports: no symptoms Gastrointestinal/Abdominal: Reports: no symptoms Genitourinary: Reports: no symptoms Neurologic/Psychiatric: Reports: no symptoms Subjective 66 YO F admitted with hyperglycemia. Await endocrinology consult. Cover for Int Med-Dr Lewis. Await discharge home Objective Last Vital Signs Date Time Temp Pulse Resp B/P (MAP) Pulse Ox O2 Delivery O2 Flow Rate FiO2 06/15/17 12:00 97.9 80 20 121/75 96 97.9 06/14/17 16:00 Room Air Laboratory Tests Test 06/15/17 10:10 White Blood Count 10.4 K/UL (4.8-10.8) Red Blood Count 5.65 M/UL (4.20-5.40) H Hemoglobin 14.5 G/DL (12.0-16.0) Hematocrit 43.0 % (37.0-47.0) Mean Corpuscular Volume 76 FL (80-99) L Mean Corpuscular Hemoglobin 25.6 PG (27.0-31.0) L Mean Corpuscular Hemoglobin Concent 33.6 G/DL (32.0-36.0) Red Cell Distribution Width 12.5 % (11.6-14.8) Platelet Count 271 K/UL (150-450) Mean Platelet Volume 10.2 FL (6.5-10.1) H Neutrophils (%) (Auto) 55.6 % (45.0-75.0) Lymphocytes (%) (Auto) 34.9 % (20.0-45.0) Monocytes (%) (Auto) 6.5 % (1.0-10.0) Eosinophils (%) (Auto) 2.1 % (0.0-3.0) Basophils (%) (Auto) 0.9 % (0.0-2.0) Sodium Level 137 MMOL/L (136-145) Potassium Level 5.0 MMOL/L (3.5-5.1) Chloride Level 107 MMOL/L (98-107) Carbon Dioxide Level 21 MMOL/L (21-32) Anion Gap 10 mmol/L (5-15) Blood Urea Nitrogen 16 mg/dL (7-18) Creatinine 0.9 MG/DL (0.55-1.30) Estimat Glomerular Filtration Rate > 60 mL/min (>60) Glucose Level 197 MG/DL (74-106) H Calcium Level 9.0 MG/DL (8.5-10.1) Phosphorus Level 3.1 MG/DL (2.5-4.9) Magnesium Level 1.9 MG/DL (1.8-2.4) Total Bilirubin 0.4 MG/DL (0.2-1.0) Aspartate Amino Transf (AST/SGOT) 17 U/L (15-37) Alanine Aminotransferase (ALT/SGPT) 16 U/L (12-78) Alkaline Phosphatase 85 U/L (46-116) Total Protein 7.1 G/DL (6.4-8.2) Albumin 3.1 G/DL (3.4-5.0) L Globulin 4.0 g/dL Albumin/Globulin Ratio 0.8 (1.0-2.7) L Intake and Output 06/14/17 06/15/17 19:00 07:00 Intake Total 810 ml Balance 810 ml Intake Oral 360 ml IV Total 450 ml # Voids 4 2 Objective General Appearance: WD/WN, no apparent distress, alert EENT: PERRL/EOMI, normal ENT inspection, TMs normal Neck: non-tender, normal alignment, supple, normal inspection Cardiovascular: normal peripheral pulses, normal rate, regular rhythm, no gallop/murmur, no JVD Respiratory/Chest: chest wall non-tender, lungs clear, normal breath sounds, no respiratory distress, no accessory muscle use Abdomen: normal bowel sounds, non tender, soft, no organomegaly, no mass Extremities: normal range of motion, non-tender 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 Continue januvia and novolog sliding scale. Add metformin. Await endo consult. (2) HTN (hypertension) Assessment & Plan: Continue Zestril and norvasc (3) Hyperglycemia Status: doing well Assessment/Plan Discharge home today IGNACIO CUTLER Jun 15, 2017 15:33
--- NOTE | 2017-06-15 17:48 | Discharge Summary ---
Discharge Summary Discharge Summary Discharge Summary DATE OF ADMISSION: 06/12/2017 DATE OF DISCHARGE: 06/15/2017 CONSULTANTS: 1. Dr. Milo Clarke 2. Dr. Xochitl Arcos BRIEF HOSPITAL COURSE: Patient is a 66-year-old -[place] female who presented with chief complaint of increased thirst and increased frequency of urination. She has history of diabetes mellitus and began to experience increased frequency on urination 3-4 days prior to admission. She was also noted to be drinking more water done usual. She noted that her blood sugar readings were steadily increasing. She stated her blood sugar reached 585. Patient presented to [facility] emergency room, on evaluation was noted to have finger glucose greater than 500. She had EKG without injury. Chest x-ray showed atelectases on the right base. Blood glucose was 370, there was no acidosis noted. She was complaining of vomiting. She was given IV hydration, Zofran and morphine. She was then admitted for evaluation of hyperglycemia, uncontrolled diabetes mellitus type 2, and hypertension. Patient has been having diarrhea, metformin was discontinued and was given Lomotil prn. Abdominal ultrasound was negative. She was given Levemir 7 units twice a day, and Januvia 100 mg daily, she was placed on nocturnal exciting scale. Blood sugar improved. She was given diabetic education, and was eventually discharged home with diabetic supplies. FINAL DIAGNOSES: 1. Diabetes mellitus type 2 out of control 2. Hypertension 3. Hyperglycemia 4. Abdominal pain and persistent vomiting 5. Anxiety 6. Neuropathy DISPOSITION: Patient was discharged home. DISCHARGE MEDICATIONS: Refer to Discharge Medication List. DISCHARGE INSTRUCTIONS: Follow up with PCP and Dr. Arceo in a week. I have been assigned to dictate discharge summary on this account, and I was not involved in the patient's management. Mar Pepe NP Jun 15, 2017 17:48
--- NOTE | 2017-06-15 19:19 | Pulmonology Progress Note ---
Assessment/Plan Problems: (1) Diabetes mellitus type II, uncontrolled (2) HTN (hypertension) (3) Abdominal pain (4) Persistent vomiting (5) Anxiety (6) Neuropathy Assessment/Plan add levemir dc metformin b/o diarrhea dc iv fluids lomotil for diarrhea prn diabetes teaching\ dc home todAY Subjective ROS Limited/Unobtainable: No Allergies: Coded Allergies: PENICILLINS (Verified Allergy, Severe, Hives, 03/21/14) Objective Last 24 Hour Vital Signs Date Time Temp Pulse Resp B/P (MAP) Pulse Ox O2 Delivery O2 Flow Rate FiO2 06/15/17 12:00 97.9 80 20 121/75 96 97.9 06/15/17 09:13 133/82 06/15/17 09:13 62 133/82 06/15/17 08:00 98.0 62 20 133/82 97 98.0 06/15/17 04:00 98.2 72 20 115/58 96 98.2 06/15/17 00:00 97.9 77 20 110/63 96 97.9 06/14/17 20:00 98.1 82 20 133/76 96 98.1 Intake and Output 06/14/17 06/15/17 19:00 07:00 Intake Total 810 ml Balance 810 ml Intake Oral 360 ml IV Total 450 ml # Voids 4 2 Objective General Appearance: WD/WN HEENT: normocephalic Respiratory/Chest: chest wall non-tender, lungs clear Cardiovascular: normal rate Abdomen: normal bowel sounds, soft, non tender, no scars Genitourinary: normal external genitalia Extremities: no clubbing Skin: no rash 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 Laboratory Tests 06/15/17 10:10: White Blood Count 10.4, Red Blood Count 5.65H, Hemoglobin 14.5, Hematocrit 43.0 , Mean Corpuscular Volume 76L, Mean Corpuscular Hemoglobin 25.6L, Mean Corpuscular Hemoglobin Concent 33.6, Red Cell Distribution Width 12.5, Platelet Count 271, Mean Platelet Volume 10.2H, Neutrophils (%) (Auto) 55.6, Lymphocytes (%) (Auto) 34.9, Monocytes (%) (Auto) 6.5, Eosinophils (%) (Auto) 2.1, Basophils (%) (Auto) 0.9, Sodium Level 137, Potassium Level 5.0, Chloride Level 107, Carbon Dioxide Level 21, Anion Gap 10, Blood Urea Nitrogen 16, Creatinine 0.9, Estimat Glomerular Filtration Rate > 60, Glucose Level 197H, Calcium Level 9.0, Phosphorus Level 3.1, Magnesium Level 1.9, Total Bilirubin 0.4, Aspartate Amino Transf (AST/SGOT) 17, Alanine Aminotransferase (ALT/SGPT) 16, Alkaline Phosphatase 85, Total Protein 7.1, Albumin 3.1L, Globulin 4.0, Albumin/Globulin Ratio 0.8L Xochitl Zimmerman MD Jun 15, 2017 19:19
== END 2017-06-15 14:30 | disposition home or self-care (01) | DRG 420 ==
LOC: EDBEDREQ 14:14 → EMR 14:55 → 4E 15:28 → EDBEDREQ 16:14 → OBSVTOIN 06-12 13:05
DX: E11.65 Type 2 diabetes mellitus with hyperglycemia (principal); G62.9 Polyneuropathy, unspecified; I10 Essential (primary) hypertension; R11.10 Vomiting, unspecified; F41.9 Anxiety disorder, unspecified; Z88.0 Allergy status to penicillin; F17.200 Nicotine dependence, unspecified, uncomplicated; R10.9 Unspecified abdominal pain
CPT/HCPCS: 36415; 71045; 76700; 80048; 80053; 81003; 82550; 82962; 83036; 83690; 83735; 83880; 84100; 84484; 85025; 85610; 85730; 93005; 96360; 96361; 96374; 96523; 99285; J1815; J2405; S5561

== ENCOUNTER 2017-06-30 13:28 | Inpatient (IN) | payer MEDICAID ==
[~2017-06-30] VITALS: Ht 160 cm; Wt 87.1 kg
[~2017-06-30 13:28] MED LIST changes: +AMLODIPINE BESYL5 MG ORAL; +OMEPRAZOLE40 M1 ORAL; +TRADJENTA5 MG PO
[2017-06-30] MEDS ORDERED: Morphine Sulfate 4mg/ml Inj IVP ONE (14:15)
[2017-06-30 14:20] VITALS: BP 136/82
--- NOTE | 2017-06-30 14:45 | Emergency Room Report ---
History of Present Illness General Chief Complaint: General Complaint Source: Patient Present Illness HPI 66 yo female patient presents to ER complaining of abdominal pain and nausea/ vomiting x2 days. Reports seen in ER previously for similar symptoms. Reports vomiting and diarrhea, denies blood in stool or emesis. Reports last episode earlier today. Reports generalized abdominal pain. Denies radiation of pain. Denies fever, chest pain, SOB. Reports hx of diabetes. Reports taking medication. Reports checked blood sugar this morning and was over 350. Denies pain with urination, hematuria. Reports hx of appendectomy last year. Allergies: Coded Allergies: PENICILLINS (Verified Allergy, Severe, Hives, 03/21/14) Patient History Past Medical History: see triage record Reviewed Nursing Documentation: PMH: Agreed; PSxH: Agreed Nursing Documentation-PMH Hx Cardiac Problems: Yes - Stent Hx Hypertension: Yes Hx COPD: Yes Hx Diabetes: Yes Hx Cancer: No Hx Gastrointestinal Problems: No Hx Neurological Problems: No Review of Systems All Other Systems: negative except mentioned in HPI Physical Exam Vital Signs Date Time Temp Pulse Resp B/P (MAP) Pulse Ox O2 Delivery O2 Flow Rate FiO2 06/30/17 13:44 98.4 81 23 136/82 94 Room Air 98.4 Sp02 EP Interpretation: reviewed, normal General Appearance: well appearing, alert, GCS 15, non-toxic, mild distress Head: normocephalic, atraumatic Eyes: bilateral eye normal inspection, bilateral eye PERRL ENT: hearing grossly normal, normal pharynx, no angioedema, normal voice, uvula midline, moist mucus membranes Neck: full range of motion Respiratory: lungs clear, normal breath sounds, no rhonchi, no respiratory distress, no accessory muscle use, no wheezing, speaking full sentences Gastrointestinal: soft, non-distended, guarding, tenderness Genitourinary: no CVA tenderness Musculoskeletal: back normal, digits/nails normal, gait/station normal, normal range of motion, non-tender, no calf tenderness Neurologic: alert, oriented x3, responsive, motor strength/tone normal, sensory intact Skin: no rash Medical Decision Making PA Attestation Dr. Giang is my supervising Physician whom patient management has been discussed with. Diagnostic Impression: Primary Impression: Abdominal pain Additional Impressions: Vomiting Diarrhea Feeling faint Diverticulosis ER Course Pt. presents to the ED c/o abdominal pain and vomiting. Ddx considered but are not limited to UTI, cholelithiasis, cholecystitis, pancreatitis, diverticulitis. Begin abdominal pain workup. Provided patient with pain medication. Vital signs: are WNL, pt. is afebrile ORDERS: CBC, CMP, Lipase, UA, Urine , CT abdomen pelvis, Zofran, and pain medication. ER COURSE: Labs unremarkable, no WBC elevation, no elevation in LFTs UA clean PT, PTT, INR WNL Lipase WNL CT abdomen pelvis negative Patient reports abdominal pain and vomiting persist after pain medication. Reports no relief of symptoms. Patient reports feeling faint. Reports she does not think she will be able to ambulate without falling. Consult with Dr. Giang. Patient will be admitted for intractable abdominal pain and vomiting. Patient admitted to Dr. Lewis. Labs Test 06/30/17 15:20 06/30/17 16:40 White Blood Count 9.0 K/UL (4.8-10.8) Red Blood Count 4.94 M/UL (4.20-5.40) Hemoglobin 13.0 G/DL (12.0-16.0) Hematocrit 37.9 % (37.0-47.0) Mean Corpuscular Volume 77 FL (80-99) Mean Corpuscular Hemoglobin 26.3 PG (27.0-31.0) Mean Corpuscular Hemoglobin Concent 34.3 G/DL (32.0-36.0) Red Cell Distribution Width 12.8 % (11.6-14.8) Platelet Count 289 K/UL (150-450) Mean Platelet Volume 9.4 FL (6.5-10.1) Neutrophils (%) (Auto) 51.2 % (45.0-75.0) Lymphocytes (%) (Auto) 39.5 % (20.0-45.0) Monocytes (%) (Auto) 5.6 % (1.0-10.0) Eosinophils (%) (Auto) 1.5 % (0.0-3.0) Basophils (%) (Auto) 2.3 % (0.0-2.0) Prothrombin Time 9.6 SEC (9.30-11.50) Prothromb Time International Ratio 0.9 (0.9-1.1) Activated Partial Thromboplast Time 25 SEC (23-33) Sodium Level 141 MMOL/L (136-145) Potassium Level 3.9 MMOL/L (3.5-5.1) Chloride Level 106 MMOL/L (98-107) Carbon Dioxide Level 25 MMOL/L (21-32) Anion Gap 10 mmol/L (5-15) Blood Urea Nitrogen 13 mg/dL (7-18) Creatinine 1.0 MG/DL (0.55-1.30) Estimat Glomerular Filtration Rate > 60 mL/min (>60) Glucose Level 167 MG/DL (74-106) Calcium Level 9.7 MG/DL (8.5-10.1) Total Bilirubin 0.4 MG/DL (0.2-1.0) Aspartate Amino Transf (AST/SGOT) 12 U/L (15-37) Alanine Aminotransferase (ALT/SGPT) 18 U/L (12-78) Alkaline Phosphatase 87 U/L (46-116) Total Protein 7.3 G/DL (6.4-8.2) Albumin 3.4 G/DL (3.4-5.0) Globulin 3.9 g/dL Albumin/Globulin Ratio 0.9 (1.0-2.7) Lipase 168 U/L (73-393) Human Chorionic Gonadotropin, Quant 1 mIU/mL (1-6) Urine Color Pale yellow Urine Appearance Clear Urine pH 6 (4.5-8.0) Urine Specific [place] 1.010 (1.005-1.035) Urine Protein Negative (NEGATIVE) Urine Glucose (UA) Negative (NEGATIVE) Urine Ketones Negative (NEGATIVE) Urine Occult Blood Negative (NEGATIVE) Urine Nitrite Negative (NEGATIVE) Urine Bilirubin Negative (NEGATIVE) Urine Urobilinogen Normal MG/DL (0.0-1.0) Urine Leukocyte Esterase Negative (NEGATIVE) CT/MRI/US Diagnostic Results CT/MRI/US Diagnostic Results : Imaging Test Ordered: CT abdomen pelvis Impression Limit assessment of the GI tract, given lack of enteric contrast administration. No gross acute abnormality Colonic diverticulosis. No evidence of diverticulitis Evidence of prior right lower quadrant surgery Incidental finding of degenerative spondylosis Last Vital Signs Date Time Temp Pulse Resp B/P (MAP) Pulse Ox O2 Delivery O2 Flow Rate FiO2 06/30/17 14:20 98.4 23 136/82 94 Room Air 98.4 06/30/17 13:44 81 Disposition: ADMITTED INPATIENT Condition: Serious Yovani Garrett Jun 30, 2017 14:45
--- NOTE | 2017-06-30 14:58 | Diagnostic Imaging Report ---
Indication: Abdominal pain, nausea vomiting diarrhea Technique: Spiral acquisitions obtained through the abdomen and pelvis. No oral contrast utilized, per emergency room physician request No IV contrast utilized, per emergency room physician request.. Multiplanar reconstructions were generated. Total dose length product 888.62 mGycm. CTDIvol(s) 16.38 mGy. Dose reduction achieved using automated exposure control Comparison: 02/01/2015 Findings: Lack of enteric contrast limits assessment of the GI tract. The appendix appears normal. Surgical clips are again demonstrated in the right lower quadrant, located at the tip of the appendix, could indicate prior distal appendectomy.. There is colonic diverticulosis distally. No evidence of diverticulitis. No small bowel distention. No free or loculated intraperitoneal air or fluid is evident. The distal esophagus, stomach, duodenum are unremarkable. Lack of IV contrast limits assessment of the solid organs. The liver, gallbladder, pancreas, bile ducts, spleen, adrenals, kidneys are grossly unremarkable. No retroperitoneal or mesenteric mass or adenopathy. No pelvic mass or adenopathy. Absent uterus. The included lung bases are clear. The bones are unremarkable except for degenerative spondylosis changes. Impression: Limit assessment of the GI tract, given lack of enteric contrast administration. No gross acute abnormality Colonic diverticulosis. No evidence of diverticulitis Evidence of prior right lower quadrant surgery Incidental finding of degenerative spondylosis The CT scanner at [facility] is accredited by the [employer] and the scans are performed using protocols designed to limit radiation exposure to as low as reasonably achievable to attain images of sufficient resolution adequate for diagnostic evaluation.
[2017-06-30 16:01] LABS: ANION GAP 10 mmol/L (5-15); BLOOD UREA NITROGEN 13 mg/dL (7-18); CALCIUM 9.7 MG/DL (8.5-10.1); CARBON DIOXIDE 25 MMOL/L (21-32); CHLORIDE 106 MMOL/L (98-107); INR 0.9 (0.9-1.1); POTASSIUM 3.9 MMOL/L (3.5-5.1); SODIUM 141 MMOL/L (136-145)
[2017-06-30 16:02] LABS: BASOPHILS % (AUTO) 2.3 % (0.0-2.0); EOSINOPHILS % (AUTO) 1.5 % (0.0-3.0); HEMATOCRIT 37.9 % (37.0-47.0); LYMPHOCYTES % (AUTO) 39.5 % (20.0-45.0); MEAN CORPUSCULAR VOLUME 77 FL (80-99); MONOCYTES % (AUTO) 5.6 % (1.0-10.0); NEUTROPHILS % (AUTO) 51.2 % (45.0-75.0); PLATELET COUNT 289 K/UL (150-450); RED BLOOD COUNT 4.94 M/UL (4.20-5.40); RED CELL DISTRIBUTION WIDTH 12.8 % (11.6-14.8)
[2017-06-30 16:06] LABS: ALANINE AMINOTRANSFERASE 18 U/L (12-78); ALBUMIN 3.4 G/DL (3.4-5.0); ALBUMIN/GLOBULIN RATIO 0.9 (1.0-2.7); ALKALINE PHOSPHATASE 87 U/L (46-116); ASPARTATE AMINO TRANSFERASE 12 U/L (15-37); BILIRUBIN,TOTAL 0.4 MG/DL (0.2-1.0)
[2017-06-30 17:44] LABS: APPEARANCE,URINE CLEAR; BILIRUBIN, URINE NEGATIVE (NEGATIVE); COLOR,URINE PALE YELLOW; GLUCOSE, URINE (UA) NEGATIVE (NEGATIVE); KETONES,URINE NEGATIVE (NEGATIVE); LEUKOCYTE ESTERASE ,URINE NEGATIVE (NEGATIVE); NITRITE,URINE NEGATIVE (NEGATIVE); PH,URINE 6 (4.5-8.0); PROTEIN,URINE NEGATIVE (NEGATIVE); UROBILINOGEN,URINE NORMAL MG/DL (0.0-1.0)
[2017-06-30 19:24] VITALS: BP 113/58
[2017-06-30 20:00] VITALS: BP 134/82
[2017-06-30] MEDS ORDERED: Nitroglycerin Subl 0.4mg tab SL PRN (20:15)
[2017-06-30] MEDS ORDERED: Mylanta II UD 30ml ORAL PRN (20:15)
[2017-06-30] MEDS ORDERED: Ketorolac 30mg Inj IV PRN (20:15)
[2017-06-30] MEDS ORDERED: Miralax 17gm pkt ORAL PRN (20:15)
[2017-06-30] MEDS: TraZODone 100mg tab ORAL SCH (21:24)
[2017-06-30] MEDS: Morphine Sulfate 4mg/ml Inj IVP PRN (21:26)
[2017-06-30] MEDS: Heparin 5000 units/ml inj SUBQ SCH (21:26)
[2017-06-30] MEDS: NovoLOG Insulin Flexpen SUBQ SCH (21:28)
[2017-07-01 04:00] VITALS: BP 115/74
[2017-07-01] MEDS: NovoLOG Insulin Flexpen SUBQ SCH ×4 (06:01→21:07)
[2017-07-01 07:42] LABS: BASOPHILS % (AUTO) 1.8 % (0.0-2.0); EOSINOPHILS % (AUTO) 2.6 % (0.0-3.0); HEMATOCRIT 36.3 % (37.0-47.0); HEMOGLOBIN 12.6 G/DL (12.0-16.0); LYMPHOCYTES % (AUTO) 49.4 % (20.0-45.0); MEAN CORPUSCULAR VOLUME 77 FL (80-99); NEUTROPHILS % (AUTO) 40.2 % (45.0-75.0); PLATELET COUNT 278 K/UL (150-450); RED BLOOD COUNT 4.72 M/UL (4.20-5.40); RED CELL DISTRIBUTION WIDTH 12.7 % (11.6-14.8); WHITE BLOOD COUNT 8.5 K/UL (4.8-10.8)
[2017-07-01 08:00] VITALS: BP 109/71
[2017-07-01 08:09] LABS: ALANINE AMINOTRANSFERASE 17 U/L (12-78); ALKALINE PHOSPHATASE 80 U/L (46-116); AMYLASE 55 U/L (25-115); ANION GAP 8 mmol/L (5-15); ASPARTATE AMINO TRANSFERASE 13 U/L (15-37); BILIRUBIN,TOTAL 0.4 MG/DL (0.2-1.0); BLOOD UREA NITROGEN 15 mg/dL (7-18); CALCIUM 9.3 MG/DL (8.5-10.1); CARBON DIOXIDE 25 MMOL/L (21-32); CHLORIDE 109 MMOL/L (98-107); CREATININE 0.9 MG/DL (0.55-1.30); SODIUM 142 MMOL/L (136-145)
[2017-07-01] MEDS: Lisinopril 2.5mg tab ORAL SCH ×2 (08:53→09:00)
[2017-07-01] MEDS: Heparin 5000 units/ml inj SUBQ SCH ×3 (08:59→21:01)
[2017-07-01] MEDS: Morphine Sulfate 4mg/ml Inj IVP PRN ×2 (10:06→21:48)
--- NOTE | 2017-07-01 10:31 | GI Initial Consult Note ---
Wagoner,Cierra William N.P. 07/01/17 1031: History of Present Illness General Date patient seen: Jul 01, 2017 Time patient seen: 11:08 Reason for Hospitalization: General Complaint Referring physician: RANDY DOTSON Reason for Consultation: GASTROENTERITIS Present Illness HPI 66 yo female patient presents to ER complaining of abdominal pain and nausea/ vomiting x2 days. Reports seen in ER previously for similar symptoms. Reports vomiting and diarrhea, denies blood in stool or emesis. Reports last episode earlier today. Reports generalized abdominal pain. Denies radiation of pain. Denies fever, chest pain, SOB. Reports hx of diabetes. Reports taking medication. Reports checked blood sugar this morning and was over 350. Denies pain with urination, hematuria. Reports hx of appendectomy last year. GI consulted for N/V x 2 days. Pt seen, awake A&Ox4 NAD with no active s/sx of N/V/D. Patient was NPO, had complaint and now on regular diet. Noted to tolerate breakfast. Denies any recent travels, changes in dietary habits. Denies any use of ETOH, drug or tobacco use. Stated she had prior diarrhea which has now resolved, an episode of emesis last night. Has history of endoscopy 3-4 years ago, but unable to recall any results. No history of colonoscopy. Elevated HcA1g. Home Meds Active Scripts Methocarbamol* (ROBAXIN-750*) 750 Mg Tablet, 750 MG PO TID, #21 TAB 0 Refills Prov:Jamehdor,Ali DO 04/04/16 Ibuprofen* (MOTRIN*) 600 Mg Tablet, 600 MG ORAL Q8H PRN for For Pain, #20 TAB 0 Refills Prov:Jamehdor,Ali DO 04/04/16 Ibuprofen* (MOTRIN*) 600 Mg Tablet, 600 MG ORAL Q8H PRN for For Pain, #30 TAB 0 Refills Prov:SUE HAMMER.Maya 12/18/15 Reported Medications Omeprazole (OMEPRAZOLE) 40 Mg Capsule.dr, 40 MG ORAL DAILY, CAP 06/11/17 Linagliptin (TRADJENTA) 5 Mg Tablet, 5 MG PO, TAB 06/11/17 Amlodipine Besylate* (AMLODIPINE BESYLATE*) 5 Mg Tablet, 5 MG ORAL DAILY, TAB 06/11/17 Dicyclomine Hcl* (DICYCLOMINE HCL*) 10 Mg Capsule, 20 MG PO TID, CAP 05/12/13 Gabapentin (Neurontin) 300 Mg Cap, 300 MG ORAL BEDTIME, #7 CAP 0 Refills 05/12/13 Trazodone* (TRAZODONE*) 150 Mg Tablet, 100 MG ORAL BEDTIME, TAB 05/12/13 Mirtazapine* (REMERON*) 30 Mg Tablet, 60 MG PO QHS 04/06/12 Lorazepam* (ATIVAN*) 2 Mg Tablet, 2 MG PO HS, #10 TAB 04/06/12 Lisinopril* (ZESTRIL*) 5 Mg Tablet, 5 MG PO DAILY, #10 TAB Take 1 tablet by mouth every day. 04/06/12 Hydrochlorothiazide* (HYDROCHLOROTHIAZIDE*) 25 Mg Tablet, 12.5 MG PO DAILY, #30 TAB 04/06/12 Med list reviewed/reconciled: Yes Allergies: Coded Allergies: PENICILLINS (Verified Allergy, Severe, Hives, 03/21/14) Patient History History Provided By: Patient, Medical Record PMH Narrative Past Medical History: see triage record Reviewed Nursing Documentation: PMH: Agreed; PSxH: Agreed Nursing Documentation-PMH Hx Cardiac Problems: Yes - Stent Hx Hypertension: Yes Hx COPD: Yes Hx Diabetes: Yes Hx Cancer: No Hx Gastrointestinal Problems: No Hx Neurological Problems: No Social History: Denies: smoking, alcohol use, drug use, other Review of Systems All Other Systems: negative except mentioned in HPI Physical Exam Vital Signs Date Time Temp Pulse Resp B/P (MAP) Pulse Ox O2 Delivery O2 Flow Rate FiO2 06/30/17 13:44 98.4 81 23 136/82 94 Room Air 98.4 Sp02 EP Interpretation: reviewed, normal Labs Laboratory Tests Test 06/30/17 15:20 06/30/17 16:40 07/01/17 05:20 White Blood Count 9.0 K/UL (4.8-10.8) 8.5 K/UL (4.8-10.8) Red Blood Count 4.94 M/UL (4.20-5.40) 4.72 M/UL (4.20-5.40) Hemoglobin 13.0 G/DL (12.0-16.0) 12.6 G/DL (12.0-16.0) Hematocrit 37.9 % (37.0-47.0) 36.3 % (37.0-47.0) L Mean Corpuscular Volume 77 FL (80-99) L 77 FL (80-99) L Mean Corpuscular Hemoglobin 26.3 PG (27.0-31.0) L 26.6 PG (27.0-31.0) L Mean Corpuscular Hemoglobin Concent 34.3 G/DL (32.0-36.0) 34.6 G/DL (32.0-36.0) Red Cell Distribution Width 12.8 % (11.6-14.8) 12.7 % (11.6-14.8) Platelet Count 289 K/UL (150-450) 278 K/UL (150-450) Mean Platelet Volume 9.4 FL (6.5-10.1) 9.6 FL (6.5-10.1) Neutrophils (%) (Auto) 51.2 % (45.0-75.0) 40.2 % (45.0-75.0) L Lymphocytes (%) (Auto) 39.5 % (20.0-45.0) 49.4 % (20.0-45.0) H Monocytes (%) (Auto) 5.6 % (1.0-10.0) 6.0 % (1.0-10.0) Eosinophils (%) (Auto) 1.5 % (0.0-3.0) 2.6 % (0.0-3.0) Basophils (%) (Auto) 2.3 % (0.0-2.0) H 1.8 % (0.0-2.0) Prothrombin Time 9.6 SEC (9.30-11.50) 10.2 SEC (9.30-11.50) Prothromb Time International Ratio 0.9 (0.9-1.1) 1.0 (0.9-1.1) Activated Partial Thromboplast Time 25 SEC (23-33) 26 SEC (23-33) Sodium Level 141 MMOL/L (136-145) 142 MMOL/L (136-145) Potassium Level 3.9 MMOL/L (3.5-5.1) 4.0 MMOL/L (3.5-5.1) Chloride Level 106 MMOL/L (98-107) 109 MMOL/L (98-107) H Carbon Dioxide Level 25 MMOL/L (21-32) 25 MMOL/L (21-32) Anion Gap 10 mmol/L (5-15) 8 mmol/L (5-15) Blood Urea Nitrogen 13 mg/dL (7-18) 15 mg/dL (7-18) Creatinine 1.0 MG/DL (0.55-1.30) 0.9 MG/DL (0.55-1.30) Estimat Glomerular Filtration Rate > 60 mL/min (>60) > 60 mL/min (>60) Glucose Level 167 MG/DL (74-106) H 103 MG/DL (74-106) Calcium Level 9.7 MG/DL (8.5-10.1) 9.3 MG/DL (8.5-10.1) Total Bilirubin 0.4 MG/DL (0.2-1.0) 0.4 MG/DL (0.2-1.0) Aspartate Amino Transf (AST/SGOT) 12 U/L (15-37) L 13 U/L (15-37) L Alanine Aminotransferase (ALT/SGPT) 18 U/L (12-78) 17 U/L (12-78) Alkaline Phosphatase 87 U/L (46-116) 80 U/L (46-116) Total Protein 7.3 G/DL (6.4-8.2) 6.1 G/DL (6.4-8.2) L Albumin 3.4 G/DL (3.4-5.0) 3.0 G/DL (3.4-5.0) L Globulin 3.9 g/dL 3.1 g/dL Albumin/Globulin Ratio 0.9 (1.0-2.7) L 1.0 (1.0-2.7) Lipase 168 U/L (73-393) 132 U/L (73-393) Human Chorionic Gonadotropin, Quant 1 mIU/mL (1-6) Urine Color Pale yellow Urine Appearance Clear Urine pH 6 (4.5-8.0) Urine Specific [place] 1.010 (1.005-1.035) Urine Protein Negative (NEGATIVE) Urine Glucose (UA) Negative (NEGATIVE) Urine Ketones Negative (NEGATIVE) Urine Occult Blood Negative (NEGATIVE) Urine Nitrite Negative (NEGATIVE) Urine Bilirubin Negative (NEGATIVE) Urine Urobilinogen Normal MG/DL (0.0-1.0) Urine Leukocyte Esterase Negative (NEGATIVE) Hemoglobin A1c 9.8 % (4.3-6.0) H Amylase Level 55 U/L (25-115) Thyroid Stimulating Hormone (TSH) 1.562 uiU/mL (0.358-3.740) General Appearance: well appearing, no apparent distress, alert, obese Head: normocephalic EENT: PERRL/EOMI, normal ENT inspection Neck: supple Respiratory: normal breath sounds, no respiratory distress Cardiovascular: normal rate Gastrointestinal: normal inspection, non tender, soft, normal bowel sounds, non -distended Rectal: deferred Genitourinary: no CVA tenderness Musculoskeletal: normal inspection, back normal Neurologic: normal inspection, alert, oriented x3, responsive Psychiatric: normal inspection, judgement/insight normal, memory normal Skin: normal inspection, normal color, no rash, warm/dry, palpation normal, well hydrated Lymphatic: normal inspection, no adenopathy Current Medications Current Medications Medications (Trade) Dose Ordered Sig/Travon Route PRN Reason Start Time Stop Time Status Last Admin Dose Admin Acetaminophen (Tylenol) 650 mg Q4H PRN ORAL fever 06/30/17 20:15 07/30/17 20:14 Al Hydroxide/Mg Hydroxide (Mylanta II) 30 ml Q6H PRN ORAL dyspepsia 06/30/17 20:15 07/30/17 20:14 Amlodipine Besylate (Norvasc) 5 mg DAILY ORAL 07/01/17 09:00 07/31/17 08:59 Dextrose (Dextrose 50%) 25 ml STAT PRN IV Hypoglycemia 06/30/17 20:15 07/30/17 20:14 Dextrose (Dextrose 50%) 50 ml STAT PRN IV Hypoglycemia < 60 mg/dL 06/30/17 20:45 07/30/17 20:14 Diphenhydramine HCl (Benadryl) 25 mg Q6H PRN ORAL Itching/Pruritis 06/30/17 20:15 07/30/17 20:14 Gabapentin (Neurontin) 300 mg BEDTIME ORAL 06/30/17 21:00 07/30/17 20:59 06/30/17 21:24 Heparin Sodium (Porcine) (Heparin 5000 units/ml) 5,000 units EVERY 12 HOURS SUBQ 06/30/17 21:00 07/30/17 20:59 06/30/17 21:26 Insulin Aspart (NovoLOG) BEFORE MEALS AND HS SUBQ 06/30/17 21:00 07/30/17 20:59 07/01/17 06:01 Ketorolac Tromethamine (Toradol 30mg) 30 mg Q6H PRN IV Moderate Pain (Scale 4-6) 06/30/17 20:15 07/05/17 20:14 Lisinopril (Zestril) 5 mg DAILY ORAL 07/01/17 09:00 07/31/17 08:59 Morphine Sulfate (Morphine Sulfate) 2 mg Q4H PRN IVP Severe Pain (Pain Scale 7-10) 06/30/17 20:15 07/07/17 20:14 07/01/17 10:06 Nitroglycerin (Ntg) 0.4 mg Q5M X 3 DOSES PRN SL Prn Chest Pain 06/30/17 20:15 07/30/17 20:14 Ondansetron HCl (Zofran) 4 mg Q6H PRN IVP Nausea & Vomiting 06/30/17 20:15 07/30/17 20:14 06/30/17 21:27 Polyethylene Glycol (Miralax) 17 gm HSPRN PRN ORAL Constipation 06/30/17 20:15 07/30/17 20:14 Sodium Chloride 1,000 ml @ 50 mls/hr Q20H IV 06/30/17 21:00 07/30/17 20:59 06/30/17 21:24 Temazepam (Restoril) 15 mg HSPRN PRN ORAL Insomnia 06/30/17 20:15 07/07/17 20:14 Trazodone HCl (Desyrel) 100 mg BEDTIME ORAL 06/30/17 21:00 07/30/17 20:59 06/30/17 21:24 GI: Plan Problems: (1) Gastroparesis (2) Vomiting (3) Abdominal pain (4) Diabetes mellitus type II, uncontrolled (5) Gastroenteritis Plan possible gastroparesis 2/2 uncontrolled DM symptomatic treatment DM management low dose reglan ATC adv to ADA diet electrolyte replacement H2B bowel regime fu labs outpatient GI procedures Discussed with Dr. Blair. Thank you for this patient referral, we will follow. ORQUIDEA BLAIR 07/02/17 1156: History of Present Illness General Reason for Hospitalization: General Complaint Present Illness Home Meds Active Scripts Methocarbamol* (ROBAXIN-750*) 750 Mg Tablet, 750 MG PO TID, #21 TAB 0 Refills Prov:Jamehdor,Ali DO 04/04/16 Ibuprofen* (MOTRIN*) 600 Mg Tablet, 600 MG ORAL Q8H PRN for For Pain, #20 TAB 0 Refills Prov:Jamehdor,Ali DO 04/04/16 Ibuprofen* (MOTRIN*) 600 Mg Tablet, 600 MG ORAL Q8H PRN for For Pain, #30 TAB 0 Refills Prov:SUE HAMMER 12/18/15 Reported Medications Omeprazole (OMEPRAZOLE) 40 Mg Capsule.dr, 40 MG ORAL DAILY, CAP 06/11/17 Linagliptin (TRADJENTA) 5 Mg Tablet, 5 MG PO, TAB 06/11/17 Amlodipine Besylate* (AMLODIPINE BESYLATE*) 5 Mg Tablet, 5 MG ORAL DAILY, TAB 06/11/17 Dicyclomine Hcl* (DICYCLOMINE HCL*) 10 Mg Capsule, 20 MG PO TID, CAP 05/12/13 Gabapentin (Neurontin) 300 Mg Cap, 300 MG ORAL BEDTIME, #7 CAP 0 Refills 05/12/13 Trazodone* (TRAZODONE*) 150 Mg Tablet, 100 MG ORAL BEDTIME, TAB 05/12/13 Mirtazapine* (REMERON*) 30 Mg Tablet, 60 MG PO QHS 04/06/12 Lorazepam* (ATIVAN*) 2 Mg Tablet, 2 MG PO HS, #10 TAB 04/06/12 Lisinopril* (ZESTRIL*) 5 Mg Tablet, 5 MG PO DAILY, #10 TAB Take 1 tablet by mouth every day. 04/06/12 Hydrochlorothiazide* (HYDROCHLOROTHIAZIDE*) 25 Mg Tablet, 12.5 MG PO DAILY, #30 TAB 04/06/12 Allergies: Coded Allergies: PENICILLINS (Verified Allergy, Severe, Hives, 03/21/14) GI: Plan Plan The patient was seen and examined at bedside and all new and available data was reviewed in the patients chart. I agree with the above findings, impression and plan. (Patient seen earlier today. Signature stamp does not reflect patient encounter time.). - MD Rizwana Edwards Anh William Galarza Jul 01, 2017 10:31 ORQUIDEA BLAIR Jul 02, 2017 11:56
[2017-07-01 12:00] VITALS: BP 117/61
[2017-07-01 16:19] VITALS: BP 114/66
[2017-07-01] MEDS ORDERED: Norco 5mg/325mg tab ORAL PRN (17:30)
[2017-07-01] MEDS: Norco 5mg/325mg tab ORAL PRN (17:48)
[2017-07-01 20:00] VITALS: BP 117/81
[2017-07-01] MEDS: TraZODone 100mg tab ORAL SCH (20:57)
--- NOTE | 2017-07-01 21:22 | Cardiology Report ---
APPROVED REPORT EKG Measurement Heart [id number] Sinus bradycardia with sinus arrhythmia Otherwise normal ECG
--- NOTE | 2017-07-02 00:04 | Diagnostic Imaging Report ---
APPROVED REPORT CPT Code: 81723 Present Symptoms Comments: R/O DVT BILATERAL: Imaging reveals a patent deep venous system bilaterally. There is no evidence of thrombus within the femoral, popliteal or tibial segments. The greater saphenous veins are also within normal limits. Doppler indicates normal spontaneous flow within these segments.
--- NOTE | 2017-07-02 01:00 | History and Physical Report ---
DATE OF ADMISSION: 06/30/2017 CHIEF COMPLAINT: The patient is a 66-year-old female, who presents with chief complaint of abdominal pain, nausea and vomiting. HISTORY OF PRESENT ILLNESS: Began two days prior to admission. The patient was admitted to [facility] on 06/11/2017. Please see History and Physical and discharge summary dictated at that time. The patient presented to the emergency room complaining of nausea and vomiting for two days. The patient also was having generalized abdominal pain. The patient presented to [place] emergency room. The patient was admitted with nausea and vomiting to rule out cholecystitis. PAST MEDICAL HISTORY: Significant for 1. Type 2 diabetes. 2. Hypertension. PAST SURGICAL HISTORY: Significant for appendectomy. CURRENT MEDICATIONS: 1. Amlodipine 5 mg one tablet p.o. daily. 2. Bentyl 20 mg p.o. 3 times a day. 3. Neurontin 300 mg p.o. at bedtime. 4. Hydrochlorothiazide 12.5 mg p.o. daily. 5. Motrin 600 mg p.o. q.8 h. p.r.n. 6. Tradjenta 5 mg p.o. daily. 7. Lisinopril 5 mg p.o. daily. 8. Ativan 2 mg p.o. at bedtime. 9. Robaxin 750 mg p.o. 3 times daily. 10. Remeron 30 mg p.o. at bedtime. 11. Omeprazole 40 mg p.o. daily. 12. Trazodone 100 mg p.o. at bedtime. ALLERGIES: Penicillin. SOCIAL HISTORY: The patient is single and lives alone. The patient admits to tobacco use of one-quarter pack per day. The patient denies alcohol use. REVIEW OF SYSTEMS: CONSTITUTIONAL: The patient denies weight loss or weight gain. The patient denies fevers or chills. HEENT: The patient denies ear or throat pain. The patient denies headache. CARDIOVASCULAR: The patient denies palpitations or chest pain. CHEST: The patient denies wheeze or shortness of breath. ABDOMEN: The patient complains of generalized abdominal pain. The patient complains of nausea with vomiting. The patient complains of diarrhea. The patient denies constipation. NEUROMUSCULAR: The patient denies seizures or generalized weakness. GENITOURINARY: The patient denies dysuria or increased frequency of urination. PHYSICAL EXAMINATION: GENERAL: The patient is a well-developed and well-nourished obese female, in no apparent distress. VITAL SIGNS: Temperature 98.2 degrees, respirations 15, pulse 56, and blood pressure 115/74. HEENT: Pupils are equal and responsive to light and accommodation. Extraocular movements are intact. NECK: Supple without lymphadenopathy. CHEST: Lungs are clear to auscultation bilaterally without wheezes or rales. CARDIOVASCULAR: Regular rhythm and rate. S1 and S2 are normal without murmurs, rubs, or gallops. ABDOMEN: Soft, diffusely tender with positive bowel sounds. No evidence of hepatosplenomegaly. Currently, no rebound or guarding noted. EXTREMITIES: Negative for clubbing, cyanosis, or edema. RECTAL/GENITAL: Refused. NEUROLOGIC: Cranial nerves II through XII are grossly intact without focal deficits. Motor strength is 5/5 bilaterally. Deep tendon reflexes are 2+ plantar. LABORATORY AND DIAGNOSTIC DATA: WBC 9.0, hemoglobin 13.0, hematocrit 37.9, and platelets 289,000. Sodium 141, potassium 3.9, chloride 106, CO2 of 25, BUN 13, creatinine 1.0, and glucose 167. CT scan of the abdomen and pelvis revealed diverticulosis without diverticulitis. ASSESSMENT: This is a 66-year-old female 1. Nausea with vomiting. 2. Diarrhea. 3. Abdominal pain. 4. Diabetes type 2. 5. Hypertension. 6. Diverticulosis. TREATMENT: 1. Nausea with vomiting and diarrhea. A Gastroenterology consultation to be obtained with Dr. Milo Clarke. We will follow recommendations of Gastroenterology. 2. Diabetes type 2. The patient has been started on NovoLog sliding scale. 3. Hypertension. Continue hydrochlorothiazide and lisinopril as above. 4. Diverticulosis. Ignacio Mancera M.D. DR: ISRRAEL JOB#: [id number] CC:
[2017-07-02] MEDS: NovoLOG Insulin Flexpen SUBQ SCH ×4 (06:30→21:10)
[2017-07-02 08:00] VITALS: BP 125/77
[2017-07-02] MEDS: Lisinopril 2.5mg tab ORAL SCH (08:53)
[2017-07-02] MEDS: Heparin 5000 units/ml inj SUBQ SCH ×2 (08:54→21:06)
--- NOTE | 2017-07-02 11:36 | Diagnostic Imaging Report ---
Indication: Trauma pain Technique: US ABD Complete Comparison: Elevation made to CT of the abdomen and pelvis 06/30/2017 Findings: Imaged portions of the pancreatic head are grossly unremarkable. The body and tail are not seen. The liver is normal in size. Hepatic contour is smooth. Liver is homogeneous in echotexture. No focal hepatic mass lesion is appreciated sonographically. Gallbladder is unremarkable in appearance. No cholelithiasis or gallbladder sludge is appreciated. There is no gallbladder wall thickening or pericholecystic fluid. Sonographic Fernandez sign reported as negative. No intrahepatic or extra hepatic biliary ductal dilatation. Common bile duct measures 3.5 to 4 mm. Kidneys demonstrate normal parenchymal thickness and echogenicity bilaterally. No evidence of hydronephrosis or sonographically appreciable renal stone. A 1 cm anechoic structure is noted in the right kidney and a subcentimeter similar-appearing anechoic structure is noted within the left kidney. These may represent small simple renal cysts. Spleen normal in size and appearance. Visualized portions of aorta normal caliber. There is no ascites. IMPRESSION: No sonographic evidence of acute intra-abdominal pathology. Specifically, no evidence of cholelithiasis or sonographic evidence to suggest acute cholecystitis. Sonographic Fernandez sign reported as negative.
[2017-07-02 12:00] VITALS: BP 125/84
[2017-07-02 16:00] VITALS: BP 128/73
--- NOTE | 2017-07-02 17:21 | Internal Med Progress Note ---
Subjective Date of Service: Jul 02, 2017 Physician Name Cutler,Antonio Attending Physician Joesph Lewis MD Current Medications Medications (Trade) Dose Ordered Sig/Travon Route PRN Reason Start Time Stop Time Status Last Admin Dose Admin Acetaminophen (Tylenol) 650 mg Q4H PRN ORAL fever 06/30/17 20:15 07/30/17 20:14 Acetaminophen/ Hydrocodone Bitart ([place] 5/325) 1 tab Q4H PRN ORAL Pain (4-6) if no IV access 07/01/17 17:30 07/08/17 17:29 07/01/17 17:48 Al Hydroxide/Mg Hydroxide (Mylanta II) 30 ml Q6H PRN ORAL dyspepsia 06/30/17 20:15 07/30/17 20:14 Amlodipine Besylate (Norvasc) 5 mg DAILY ORAL 07/01/17 09:00 07/31/17 08:59 07/02/17 08:52 Dextrose (Dextrose 50%) 25 ml STAT PRN IV Hypoglycemia 06/30/17 20:15 07/30/17 20:14 Dextrose (Dextrose 50%) 50 ml STAT PRN IV Hypoglycemia < 60 mg/dL 06/30/17 20:45 07/30/17 20:14 Diphenhydramine HCl (Benadryl) 25 mg Q6H PRN ORAL Itching/Pruritis 06/30/17 20:15 07/30/17 20:14 Famotidine (Pepcid) 20 mg DAILY ORAL 07/02/17 09:00 08/01/17 08:59 07/02/17 08:52 Gabapentin (Neurontin) 300 mg BEDTIME ORAL 06/30/17 21:00 07/30/17 20:59 07/01/17 20:57 Heparin Sodium (Porcine) (Heparin 5000 units/ml) 5,000 units EVERY 12 HOURS SUBQ 06/30/17 21:00 07/30/17 20:59 07/02/17 08:54 Insulin Aspart (NovoLOG) BEFORE MEALS AND HS SUBQ 06/30/17 21:00 07/30/17 20:59 07/02/17 17:09 Ketorolac Tromethamine (Toradol 30mg) 30 mg Q6H PRN IV Moderate Pain (Scale 4-6) 06/30/17 20:15 07/05/17 20:14 Lisinopril (Zestril) 5 mg DAILY ORAL 07/01/17 09:00 07/31/17 08:59 07/02/17 08:53 Metoclopramide HCl (Reglan) 5 mg TID ORAL 07/01/17 13:00 07/31/17 12:59 07/02/17 12:10 Morphine Sulfate (Morphine Sulfate) 2 mg Q4H PRN IVP Severe Pain (Pain Scale 7-10) 06/30/17 20:15 07/07/17 20:14 07/01/17 21:48 Nitroglycerin (Ntg) 0.4 mg Q5M X 3 DOSES PRN SL Prn Chest Pain 06/30/17 20:15 07/30/17 20:14 Ondansetron HCl (Zofran) 4 mg Q6H PRN IVP Nausea & Vomiting 06/30/17 20:15 07/30/17 20:14 06/30/17 21:27 Polyethylene Glycol (Miralax) 17 gm HSPRN PRN ORAL Constipation 06/30/17 20:15 07/30/17 20:14 Sodium Chloride 1,000 ml @ 50 mls/hr Q20H IV 06/30/17 21:00 07/30/17 20:59 06/30/17 21:24 Temazepam (Restoril) 15 mg HSPRN PRN ORAL Insomnia 06/30/17 20:15 07/07/17 20:14 Trazodone HCl (Desyrel) 100 mg BEDTIME ORAL 06/30/17 21:00 07/30/17 20:59 07/01/17 20:57 Allergies: Coded Allergies: PENICILLINS (Verified Allergy, Severe, Hives, 03/21/14) ROS Limited/Unobtainable: No Constitutional: Reports: no symptoms HEENT: Reports: no symptoms Cardiovascular: Reports: no symptoms Respiratory: Reports: no symptoms Gastrointestinal/Abdominal: Reports: no symptoms Genitourinary: Reports: no symptoms Neurologic/Psychiatric: Reports: other - dizziness Subjective 66 YO F admitted with nausea and vomiting. Now vertigo. Cover for Int [place]-Dr Lewis. Objective Last Vital Signs Date Time Temp Pulse Resp B/P (MAP) Pulse Ox O2 Delivery O2 Flow Rate FiO2 07/02/17 16:00 98.2 57 20 128/73 97 Room Air 98.2 General Appearance: WD/WN, no apparent distress, alert EENT: PERRL/EOMI, normal ENT inspection, TMs normal Neck: non-tender, normal alignment, supple, normal inspection Cardiovascular: normal peripheral pulses, normal rate, regular rhythm, no gallop/murmur, no JVD Respiratory/Chest: chest wall non-tender, lungs clear, normal breath sounds, no respiratory distress, no accessory muscle use Abdomen: normal bowel sounds, non tender, soft, no organomegaly, no mass Extremities: normal range of motion, non-tender 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 See GI note. (2) Diarrhea (3) Diabetes mellitus type II, uncontrolled Assessment & Plan: Continue novolog sliding scale. Await endocrinology consult (4) Abdominal pain (5) HTN (hypertension) Assessment & Plan: Continue lisinopril (6) Diverticulosis Status: not improved ANTONIO CUTLER Jul 02, 2017 17:21
[2017-07-02 19:58] VITALS: BP 134/72
[2017-07-02] MEDS: Norco 5mg/325mg tab ORAL PRN (21:05)
[2017-07-02] MEDS: TraZODone 100mg tab ORAL SCH (21:06)
[2017-07-03] VITALS (7 sets, daily range): BP systolic 98–138; BP diastolic 55–80
[2017-07-03] MEDS: NovoLOG Insulin Flexpen SUBQ SCH ×4 (06:27→20:52)
[2017-07-03] MEDS: Lisinopril 2.5mg tab ORAL SCH (08:51)
[2017-07-03] MEDS: Heparin 5000 units/ml inj SUBQ SCH ×2 (08:55→20:51)
--- NOTE | 2017-07-03 14:23 | Internal Med Progress Note ---
Subjective Date of Service: Jul 03, 2017 Physician Name Cutler,Antonio Attending Physician Joesph Lewis MD Current Medications Medications (Trade) Dose Ordered Sig/Travon Route PRN Reason Start Time Stop Time Status Last Admin Dose Admin Acetaminophen (Tylenol) 650 mg Q4H PRN ORAL fever 06/30/17 20:15 07/30/17 20:14 Acetaminophen/ Hydrocodone Bitart ([place] 5/325) 1 tab Q4H PRN ORAL Pain (4-6) if no IV access 07/01/17 17:30 07/08/17 17:29 07/02/17 21:05 Al Hydroxide/Mg Hydroxide (Mylanta II) 30 ml Q6H PRN ORAL dyspepsia 06/30/17 20:15 07/30/17 20:14 Amlodipine Besylate (Norvasc) 5 mg DAILY ORAL 07/01/17 09:00 07/31/17 08:59 07/02/17 08:52 Dextrose (Dextrose 50%) 25 ml STAT PRN IV Hypoglycemia 06/30/17 20:15 07/30/17 20:14 Dextrose (Dextrose 50%) 50 ml STAT PRN IV Hypoglycemia < 60 mg/dL 06/30/17 20:45 07/30/17 20:14 Diphenhydramine HCl (Benadryl) 25 mg Q6H PRN ORAL Itching/Pruritis 06/30/17 20:15 07/30/17 20:14 Famotidine (Pepcid) 20 mg DAILY ORAL 07/02/17 09:00 08/01/17 08:59 07/03/17 08:51 Gabapentin (Neurontin) 300 mg BEDTIME ORAL 06/30/17 21:00 07/30/17 20:59 07/02/17 21:06 Heparin Sodium (Porcine) (Heparin 5000 units/ml) 5,000 units EVERY 12 HOURS SUBQ 06/30/17 21:00 07/30/17 20:59 07/03/17 08:55 Insulin Aspart (NovoLOG) BEFORE MEALS AND HS SUBQ 06/30/17 21:00 07/30/17 20:59 07/03/17 12:29 Ketorolac Tromethamine (Toradol 30mg) 30 mg Q6H PRN IV Moderate Pain (Scale 4-6) 06/30/17 20:15 07/05/17 20:14 Lisinopril (Zestril) 5 mg DAILY ORAL 07/01/17 09:00 07/31/17 08:59 07/02/17 08:53 Meclizine HCl (Antivert) 25 mg Q6H PRN ORAL for dizziness 07/03/17 14:15 08/02/17 14:14 Metoclopramide HCl (Reglan) 5 mg TID ORAL 07/01/17 13:00 07/31/17 12:59 07/03/17 12:20 Morphine Sulfate (Morphine Sulfate) 2 mg Q4H PRN IVP Severe Pain (Pain Scale 7-10) 06/30/17 20:15 07/07/17 20:14 07/01/17 21:48 Nateglinide (Starlix) 60 mg TIAC ORAL 07/03/17 16:30 08/02/17 16:29 Nitroglycerin (Ntg) 0.4 mg Q5M X 3 DOSES PRN SL Prn Chest Pain 06/30/17 20:15 07/30/17 20:14 Ondansetron HCl (Zofran) 4 mg Q6H PRN IVP Nausea & Vomiting 06/30/17 20:15 07/30/17 20:14 06/30/17 21:27 Polyethylene Glycol (Miralax) 17 gm HSPRN PRN ORAL Constipation 06/30/17 20:15 07/30/17 20:14 Sitagliptin Phosphate (Januvia) 25 mg ACBREAKFAST ORAL 07/04/17 06:30 08/03/17 06:29 Sodium Chloride 1,000 ml @ 50 mls/hr Q20H IV 06/30/17 21:00 07/30/17 20:59 06/30/17 21:24 Temazepam (Restoril) 15 mg HSPRN PRN ORAL Insomnia 06/30/17 20:15 07/07/17 20:14 Trazodone HCl (Desyrel) 100 mg BEDTIME ORAL 06/30/17 21:00 07/30/17 20:59 07/02/17 21:06 Allergies: Coded Allergies: PENICILLINS (Verified Allergy, Severe, Hives, 03/21/14) ROS Limited/Unobtainable: No Constitutional: Reports: no symptoms HEENT: Reports: no symptoms Cardiovascular: Reports: no symptoms Respiratory: Reports: no symptoms Gastrointestinal/Abdominal: Reports: no symptoms Genitourinary: Reports: no symptoms Neurologic/Psychiatric: Reports: no symptoms Subjective 66 YO F admitted with nausea and vomiting. Now vertigo. Cover for Int [place]-Dr Lewis. Objective Last Vital Signs Date Time Temp Pulse Resp B/P (MAP) Pulse Ox O2 Delivery O2 Flow Rate FiO2 07/03/17 12:00 97.1 68 18 98/56 97 97.1 07/03/17 04:00 Room Air Intake and Output 07/02/17 07/03/17 19:00 07:00 Intake Total 800 ml Output Total 0 ml Balance 800 ml 0 ml Intake Oral 800 ml Output Stool Total 0 ml # Voids 3 2 Assessment/Plan Problem List: (1) Nausea & vomiting Assessment & Plan: Resolved. See GI note. (2) Diarrhea (3) Diabetes mellitus type II, uncontrolled Assessment & Plan: Continue novolog sliding scale. See endocrinology consult (4) Abdominal pain (5) HTN (hypertension) Assessment & Plan: Continue lisinopril (6) Diverticulosis (7) Vertigo Assessment & Plan: PRN meclizine. Await MRI brain Status: not improved ANTONIO CUTLER Jul 03, 2017 14:23
[2017-07-03] MEDS: Meclizine 25mg tab ORAL PRN ×2 (14:36→20:48)
[2017-07-03] MEDS ORDERED: D5 1/2NS 1000ml IV ONE (15:44)
[2017-07-03] MEDS: Morphine Sulfate 4mg/ml Inj IVP PRN ×2 (16:42→22:14)
[2017-07-03] MEDS: Nateglinide 60mg tab ORAL SCH (16:42)
--- NOTE | 2017-07-03 18:15 | Consultation ---
DATE OF CONSULTATION: 07/03/2017 ENDOCRINOLOGY CONSULTATION CONSULTING PHYSICIAN: Blaine Arceo M.D. REFERRING PHYSICIAN: Ignacio Mancera M.D. REASON FOR CONSULTATION: Diabetes management. HISTORY OF PRESENT ILLNESS: The patient is a 66-year-old female with history of diabetes admitted to the hospital with nausea, vomiting and dizziness. Currently, tolerating diet, diabetes as an outpatient and treated with multiple daily injection, which is noncompliant with. Creatinine is 9.8. I was called to manage diabetes. PAST MEDICAL HISTORY: 1. Type 2 diabetes. 2. Hypertension. PAST SURGICAL HISTORY: Appendectomy. MEDICATIONS: Amlodipine, Bentyl, Neurontin, hydrochlorothiazide, Motrin, Tradjenta, lisinopril, Ativan, Robaxin, Remeron, omeprazole and trazodone. ALLERGIES TO MEDICATION: Penicillin. SOCIAL HISTORY: Single, lives alone. Smokes cigarettes. No alcohol or drug use. REVIEW OF SYSTEMS: As per history of present illness. PHYSICAL EXAMINATION: GENERAL: The patient is awake and alert. VITAL SIGNS: Blood pressure is 115/70, pulse of 80, temperature 98.2 degrees and respiratory rate of 18. HEENT: Pupils are equal and reactive to light and accommodation. Sclerae are anicteric. NECK: No JVD. No thyromegaly. No bruit. LUNGS: Clear. ABDOMEN: Positive bowel sounds. EXTREMITIES: No clubbing, cyanosis, or edema. LABORATORY AND DIAGNOSTIC DATA: WBC 8.5, hemoglobin 12.6, hematocrit 36.3, and platelets of 278. Sodium is 142, potassium 4.0, chloride 101, bicarbonate 25, BUN , creatinine 0.9, and glucose of 103. A1c of 9.8. TSH of 1.5. DIAGNOSES: 1. Dizziness. 2. Possible gastroenteritis. 3. Diabetes, out of control. PLAN: We will start the patient on Januvia 25 mg daily. Start Starlix 60 mg b.i.d. Continue NovoLog sliding scale before meals and at bedtime. Further adjustment will be done according to blood glucose values. Thank you, Dr. Mancera, for the courtesy of this consultation. Blaine Arceo M.D. DR: MABLE JOB#: [id number] CC:
[2017-07-03] MEDS: TraZODone 100mg tab ORAL SCH (20:47)
[2017-07-04 04:00] VITALS: BP 120/70
[2017-07-04] MEDS: Nateglinide 60mg tab ORAL SCH ×3 (05:35→16:33)
[2017-07-04] MEDS: sitaGLIPtin 25mg tab ORAL SCH (05:35)
[2017-07-04] MEDS: NovoLOG Insulin Flexpen SUBQ SCH ×4 (05:36→21:15)
[2017-07-04 08:00] VITALS: BP 124/78
[2017-07-04] MEDS: Lisinopril 2.5mg tab ORAL SCH (08:27)
[2017-07-04] MEDS: Heparin 5000 units/ml inj SUBQ SCH ×2 (08:29→21:14)
[2017-07-04] MEDS: Meclizine 25mg tab ORAL PRN ×2 (08:35→16:33)
--- NOTE | 2017-07-04 10:18 | General Progress Note ---
Assessment/Plan Problem List: (1) Bipolar depression ICD Codes: F31.30 - Bipolar depression SNOMED: 20010619 (2) Gastroenteritis ICD Codes: K52.9 - Noninfective gastroenteritis and colitis, unspecified SNOMED: 06461000 (3) Diabetes mellitus type II, uncontrolled ICD Codes: E11.65 - Type 2 diabetes mellitus with hyperglycemia SNOMED: 37887735, 267992023 Assessment/Plan continue Januvia and Starlix continue NISS Subjective Allergies: Coded Allergies: PENICILLINS (Verified Allergy, Severe, Hives, 03/21/14) All Systems: reviewed and negative except above Subjective events noted Objective Last 24 Hour Vital Signs Date Time Temp Pulse Resp B/P (MAP) Pulse Ox O2 Delivery O2 Flow Rate FiO2 07/04/17 08:27 124/78 07/04/17 08:27 58 124/78 07/04/17 08:00 97.6 58 18 124/78 98 Room Air 97.6 07/04/17 04:00 98.1 59 18 120/70 96 98.1 07/03/17 23:52 98.2 63 18 114/79 97 98.2 07/03/17 22:44 98.4 07/03/17 22:14 98.4 07/03/17 20:00 98.4 54 18 138/75 97 98.4 07/03/17 15:45 98.1 65 19 128/70 97 98.1 07/03/17 12:00 97.1 68 18 98/56 97 97.1 Intake and Output 07/03/17 07/04/17 19:00 07:00 Intake Total 480 ml 400 ml Balance 480 ml 400 ml Intake Oral 480 ml 350 ml IV Total 50 ml # Voids 3 Height (Feet): 5 Height (Inches): 3.00 Weight (Pounds): 192 General Appearance: no apparent distress Neck: normal alignment Cardiovascular: regular rhythm Respiratory/Chest: normal breath sounds Abdomen: normal bowel sounds FALLON ALICEA Jul 04, 2017 10:18
[2017-07-04 12:00] VITALS: BP 100/50
--- NOTE | 2017-07-04 14:50 | Internal Med Progress Note ---
Subjective Date of Service: Jul 04, 2017 Physician Name Antonio Cutler Attending Physician Joesph Lewis MD Current Medications Medications (Trade) Dose Ordered Sig/Travon Route PRN Reason Start Time Stop Time Status Last Admin Dose Admin Acetaminophen (Tylenol) 650 mg Q4H PRN ORAL fever 06/30/17 20:15 07/30/17 20:14 Acetaminophen/ Hydrocodone Bitart ([place] 5/325) 1 tab Q4H PRN ORAL Pain (4-6) if no IV access 07/01/17 17:30 07/08/17 17:29 07/02/17 21:05 Al Hydroxide/Mg Hydroxide (Mylanta II) 30 ml Q6H PRN ORAL dyspepsia 06/30/17 20:15 07/30/17 20:14 Amlodipine Besylate (Norvasc) 5 mg DAILY ORAL 07/01/17 09:00 07/31/17 08:59 07/04/17 08:27 Dextrose (Dextrose 50%) 25 ml STAT PRN IV Hypoglycemia 06/30/17 20:15 07/30/17 20:14 Dextrose (Dextrose 50%) 50 ml STAT PRN IV Hypoglycemia < 60 mg/dL 06/30/17 20:45 07/30/17 20:14 Diphenhydramine HCl (Benadryl) 25 mg Q6H PRN ORAL Itching/Pruritis 06/30/17 20:15 07/30/17 20:14 Famotidine (Pepcid) 20 mg DAILY ORAL 07/02/17 09:00 08/01/17 08:59 07/04/17 08:27 Gabapentin (Neurontin) 300 mg BEDTIME ORAL 06/30/17 21:00 07/30/17 20:59 07/03/17 20:48 Heparin Sodium (Porcine) (Heparin 5000 units/ml) 5,000 units EVERY 12 HOURS SUBQ 06/30/17 21:00 07/30/17 20:59 07/04/17 08:29 Insulin Aspart (NovoLOG) BEFORE MEALS AND HS SUBQ 06/30/17 21:00 07/30/17 20:59 07/04/17 11:49 Ketorolac Tromethamine (Toradol 30mg) 30 mg Q6H PRN IV Moderate Pain (Scale 4-6) 06/30/17 20:15 07/05/17 20:14 Lisinopril (Zestril) 5 mg DAILY ORAL 07/01/17 09:00 07/31/17 08:59 07/04/17 08:27 Meclizine HCl (Antivert) 25 mg Q6H PRN ORAL for dizziness 07/03/17 14:15 08/02/17 14:14 07/04/17 08:35 Metoclopramide HCl (Reglan) 5 mg TID ORAL 07/01/17 13:00 07/31/17 12:59 07/04/17 12:28 Morphine Sulfate (Morphine Sulfate) 2 mg Q4H PRN IVP Severe Pain (Pain Scale 7-10) 06/30/17 20:15 07/07/17 20:14 07/03/17 22:14 Nateglinide (Starlix) 60 mg TIAC ORAL 07/03/17 16:30 08/02/17 16:29 07/04/17 11:47 Nitroglycerin (Ntg) 0.4 mg Q5M X 3 DOSES PRN SL Prn Chest Pain 06/30/17 20:15 07/30/17 20:14 Ondansetron HCl (Zofran) 4 mg Q6H PRN IVP Nausea & Vomiting 06/30/17 20:15 07/30/17 20:14 06/30/17 21:27 Polyethylene Glycol (Miralax) 17 gm HSPRN PRN ORAL Constipation 06/30/17 20:15 07/30/17 20:14 Sitagliptin Phosphate (Januvia) 25 mg ACBREAKFAST ORAL 07/04/17 06:30 08/03/17 06:29 07/04/17 05:35 Sodium Chloride 1,000 ml @ 50 mls/hr Q20H IV 06/30/17 21:00 07/30/17 20:59 07/04/17 04:39 Temazepam (Restoril) 15 mg HSPRN PRN ORAL Insomnia 06/30/17 20:15 07/07/17 20:14 Trazodone HCl (Desyrel) 100 mg BEDTIME ORAL 06/30/17 21:00 07/30/17 20:59 07/03/17 20:47 Allergies: Coded Allergies: PENICILLINS (Verified Allergy, Severe, Hives, 03/21/14) ROS Limited/Unobtainable: No Constitutional: Reports: no symptoms HEENT: Reports: no symptoms Cardiovascular: Reports: no symptoms Respiratory: Reports: no symptoms Gastrointestinal/Abdominal: Reports: no symptoms Genitourinary: Reports: no symptoms Neurologic/Psychiatric: Reports: no symptoms Subjective 66 YO F admitted with nausea and vomiting. Now vertigo. Cover for Int [place]-Dr Lewis. Objective Last Vital Signs Date Time Temp Pulse Resp B/P (MAP) Pulse Ox O2 Delivery O2 Flow Rate FiO2 07/04/17 12:00 96.8 63 18 100/50 97 Room Air 96.8 Intake and Output 07/03/17 07/04/17 19:00 07:00 Intake Total 480 ml 400 ml Balance 480 ml 400 ml Intake Oral 480 ml 350 ml IV Total 50 ml # Voids 3 Objective General Appearance: WD/WN, no apparent distress, alert EENT: PERRL/EOMI, normal ENT inspection, TMs normal Neck: non-tender, normal alignment, supple, normal inspection Cardiovascular: normal peripheral pulses, normal rate, regular rhythm, no gallop/murmur, no JVD Respiratory/Chest: chest wall non-tender, lungs clear, normal breath sounds, no respiratory distress, no accessory muscle use Abdomen: normal bowel sounds, non tender, soft, no organomegaly, no mass Extremities: normal range of motion, non-tender 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 See GI note. (2) Diarrhea (3) Diabetes mellitus type II, uncontrolled Assessment & Plan: Continue novolog sliding scale. See endocrinology consult (4) Abdominal pain (5) HTN (hypertension) Assessment & Plan: Continue lisinopril (6) Diverticulosis (7) Vertigo Assessment & Plan: PRN meclizine. Await MRI brain Status: progressing ANTONIO CUTLER Jul 04, 2017 14:50
[2017-07-04 16:00] VITALS: BP 124/57
[2017-07-04 20:00] VITALS: BP 129/53
[2017-07-04] MEDS: TraZODone 100mg tab ORAL SCH (21:14)
[2017-07-04] MEDS: Norco 5mg/325mg tab ORAL PRN (21:20)
[2017-07-05] VITALS: BP 130/60
[2017-07-05 04:00] VITALS: BP 114/65
[2017-07-05] MEDS: Nateglinide 60mg tab ORAL SCH ×3 (05:54→17:01)
[2017-07-05] MEDS: sitaGLIPtin 25mg tab ORAL SCH (05:54)
[2017-07-05] MEDS: NovoLOG Insulin Flexpen SUBQ SCH ×4 (05:55→21:26)
[2017-07-05 08:00] VITALS: BP 129/59
[2017-07-05] MEDS: Lisinopril 2.5mg tab ORAL SCH (09:03)
[2017-07-05] MEDS: Heparin 5000 units/ml inj SUBQ SCH ×2 (09:05→21:26)
--- NOTE | 2017-07-05 11:04 | GI Progress Note ---
Assessment/Plan Problems: (1) Bipolar depression ICD Codes: F31.30 - Bipolar depression SNOMED: 05476731 (2) Nausea & vomiting ICD Codes: R11.2 - Nausea with vomiting, unspecified SNOMED: 16990765 (3) Feeling faint ICD Codes: R42 - Dizziness and giddiness SNOMED: 244668328 (4) Vomiting ICD Codes: R11.10 - Vomiting, unspecified SNOMED: 853451925 (5) Abdominal pain ICD Codes: R10.9 - Unspecified abdominal pain SNOMED: 51981222 (6) Gastroparesis ICD Codes: K31.84 - Gastroparesis SNOMED: 697067548 Status: stable Status Narrative Discussed with Dr. Clarke. Assessment/Plan possible gastroparesis 2/2 uncontrolled DM okay for DC per GI standpoint symptomatic treatment DM management low dose reglan ATC adv to ADA diet electrolyte replacement H2B bowel regime fu labs outpatient GI procedures Subjective Gastrointestinal/Abdominal: Reports: no symptoms Objective Last 24 Hour Vital Signs Date Time Temp Pulse Resp B/P (MAP) Pulse Ox O2 Delivery O2 Flow Rate FiO2 07/05/17 09:03 129/59 07/05/17 09:03 66 129/59 07/05/17 08:00 99.0 66 20 129/59 100 Room Air 99.0 07/05/17 04:00 96 Room Air 07/05/17 04:00 97.0 65 19 114/65 96 Room Air 97.0 07/05/17 00:00 96.9 61 20 130/60 100 Room Air 96.9 07/05/17 00:00 100 Room Air 07/04/17 22:19 96.4 07/04/17 21:20 96.4 07/04/17 20:00 100 Room Air 07/04/17 20:00 96.4 60 18 129/53 100 Room Air 96.4 07/04/17 16:00 97.1 65 18 124/57 98 Room Air 97.1 07/04/17 12:00 96.8 63 18 100/50 97 Room Air 96.8 Intake and Output 07/04/17 07/05/17 19:00 07:00 Intake Total 870 ml Balance 870 ml Intake Oral 720 ml IV Total 150 ml # Voids 3 5 # Bowel Movements 1 Height (Feet): 5 Height (Inches): 3.00 Weight (Pounds): 192 General Appearance: WD/WN, no apparent distress, alert, overweight Cardiovascular: normal rate Respiratory/Chest: normal breath sounds, no respiratory distress Abdominal Exam: normal bowel sounds, non tender, soft Extremities: normal range of motion, non-tender Cierra Wagoner N.P. Jul 05, 2017 11:04
[2017-07-05 12:00] VITALS: BP 150/78
[2017-07-05 13:22] LABS: BASOPHILS % (AUTO) 1.2 % (0.0-2.0); EOSINOPHILS % (AUTO) 1.1 % (0.0-3.0); HEMATOCRIT 40.7 % (37.0-47.0); HEMOGLOBIN 13.9 G/DL (12.0-16.0); LYMPHOCYTES % (AUTO) 19.1 % (20.0-45.0); MEAN CORPUSCULAR VOLUME 77 FL (80-99); MONOCYTES % (AUTO) 6.3 % (1.0-10.0); NEUTROPHILS % (AUTO) 72.4 % (45.0-75.0); PLATELET COUNT 318 K/UL (150-450); RED BLOOD COUNT 5.28 M/UL (4.20-5.40); RED CELL DISTRIBUTION WIDTH 12.5 % (11.6-14.8); WHITE BLOOD COUNT 12.1 K/UL (4.8-10.8)
[2017-07-05 13:36] LABS: ANION GAP 13 mmol/L (5-15); BLOOD UREA NITROGEN 10 mg/dL (7-18); CALCIUM 9.6 MG/DL (8.5-10.1); CARBON DIOXIDE 20 MMOL/L (21-32); CHLORIDE 105 MMOL/L (98-107); SODIUM 138 MMOL/L (136-145)
--- NOTE | 2017-07-05 14:16 | Diagnostic Imaging Report ---
Indication: Disease, vertigo, nausea, vomiting Technique: sagittal T1 fast spin echo, axial T1 FLAIR, axial T2 FLAIR, axial T2 FS PROPELLER, axial T2* GRE, axial diffusion weighted images. ADC and exponential ADC maps generated Comparison: Head CT dated 07/27/2014 Findings: There is some image degradation due to motion artifact. No abnormal areas of restricted diffusion to suggest acute infarction. No acute hemorrhage or edema. No mass effect nor midline shift. There is mild age-related enlargement of the ventricles and extra axial CSF spaces. The vascular flow voids are preserved.. Visualized orbits and sinuses are unremarkable. Impression: Mild age-related volume loss. Negative for acute intracranial bleed, mass effect, or infarct
[2017-07-05 16:00] VITALS: BP 108/55
--- NOTE | 2017-07-05 18:15 | Internal Med Progress Note ---
Subjective Date of Service: Jul 05, 2017 Physician Name Cutler,Antonio Attending Physician Joesph Lewis MD Current Medications Medications (Trade) Dose Ordered Sig/Travon Route PRN Reason Start Time Stop Time Status Last Admin Dose Admin Acetaminophen (Tylenol) 650 mg Q4H PRN ORAL fever 06/30/17 20:15 07/30/17 20:14 Acetaminophen/ Hydrocodone Bitart ([place] 5/325) 1 tab Q4H PRN ORAL Pain (4-6) if no IV access 07/01/17 17:30 07/08/17 17:29 07/04/17 21:20 Al Hydroxide/Mg Hydroxide (Mylanta II) 30 ml Q6H PRN ORAL dyspepsia 06/30/17 20:15 07/30/17 20:14 Amlodipine Besylate (Norvasc) 5 mg DAILY ORAL 07/01/17 09:00 07/31/17 08:59 07/05/17 09:03 Dextrose (Dextrose 50%) 25 ml STAT PRN IV Hypoglycemia 06/30/17 20:15 07/30/17 20:14 Dextrose (Dextrose 50%) 50 ml STAT PRN IV Hypoglycemia < 60 mg/dL 06/30/17 20:45 07/30/17 20:14 Diphenhydramine HCl (Benadryl) 25 mg Q6H PRN ORAL Itching/Pruritis 06/30/17 20:15 07/30/17 20:14 Famotidine (Pepcid) 20 mg DAILY ORAL 07/02/17 09:00 08/01/17 08:59 07/05/17 09:03 Gabapentin (Neurontin) 300 mg BEDTIME ORAL 06/30/17 21:00 07/30/17 20:59 07/04/17 21:13 Heparin Sodium (Porcine) (Heparin 5000 units/ml) 5,000 units EVERY 12 HOURS SUBQ 06/30/17 21:00 07/30/17 20:59 07/05/17 09:05 Insulin Aspart (NovoLOG) BEFORE MEALS AND HS SUBQ 06/30/17 21:00 07/30/17 20:59 07/05/17 17:04 Ketorolac Tromethamine (Toradol 30mg) 30 mg Q6H PRN IV Moderate Pain (Scale 4-6) 06/30/17 20:15 07/05/17 20:14 Lisinopril (Zestril) 5 mg DAILY ORAL 07/01/17 09:00 07/31/17 08:59 07/05/17 09:03 Meclizine HCl (Antivert) 25 mg Q6H PRN ORAL for dizziness 07/03/17 14:15 08/02/17 14:14 07/04/17 16:33 Metoclopramide HCl (Reglan) 5 mg TID ORAL 07/01/17 13:00 07/31/17 12:59 07/05/17 12:58 Morphine Sulfate (Morphine Sulfate) 2 mg Q4H PRN IVP Severe Pain (Pain Scale 7-10) 06/30/17 20:15 07/07/17 20:14 07/03/17 22:14 Nateglinide (Starlix) 60 mg TIAC ORAL 07/03/17 16:30 08/02/17 16:29 07/05/17 17:01 Nitroglycerin (Ntg) 0.4 mg Q5M X 3 DOSES PRN SL Prn Chest Pain 06/30/17 20:15 07/30/17 20:14 Ondansetron HCl (Zofran) 4 mg Q6H PRN IVP Nausea & Vomiting 06/30/17 20:15 07/30/17 20:14 06/30/17 21:27 Polyethylene Glycol (Miralax) 17 gm HSPRN PRN ORAL Constipation 06/30/17 20:15 07/30/17 20:14 Sitagliptin Phosphate (Januvia) 25 mg ACBREAKFAST ORAL 07/04/17 06:30 08/03/17 06:29 07/05/17 05:54 Temazepam (Restoril) 15 mg HSPRN PRN ORAL Insomnia 06/30/17 20:15 07/07/17 20:14 Trazodone HCl (Desyrel) 100 mg BEDTIME ORAL 06/30/17 21:00 07/30/17 20:59 07/04/17 21:14 Allergies: Coded Allergies: PENICILLINS (Verified Allergy, Severe, Hives, 03/21/14) ROS Limited/Unobtainable: No Constitutional: Reports: no symptoms HEENT: Reports: no symptoms Cardiovascular: Reports: no symptoms Respiratory: Reports: no symptoms Gastrointestinal/Abdominal: Reports: no symptoms Genitourinary: Reports: no symptoms Neurologic/Psychiatric: Reports: other - Dizziness Subjective 66 YO F admitted with nausea and vomiting. Now vertigo. Cover for Int Med-Dr Lewis. Await MRI brain Objective Last Vital Signs Date Time Temp Pulse Resp B/P (MAP) Pulse Ox O2 Delivery O2 Flow Rate FiO2 07/05/17 16:00 97.4 67 19 108/55 97 Room Air 97.4 Laboratory Tests Test 07/05/17 12:45 White Blood Count 12.1 K/UL (4.8-10.8) H Red Blood Count 5.28 M/UL (4.20-5.40) Hemoglobin 13.9 G/DL (12.0-16.0) Hematocrit 40.7 % (37.0-47.0) Mean Corpuscular Volume 77 FL (80-99) L Mean Corpuscular Hemoglobin 26.4 PG (27.0-31.0) L Mean Corpuscular Hemoglobin Concent 34.1 G/DL (32.0-36.0) Red Cell Distribution Width 12.5 % (11.6-14.8) Platelet Count 318 K/UL (150-450) Mean Platelet Volume 9.1 FL (6.5-10.1) Neutrophils (%) (Auto) 72.4 % (45.0-75.0) Lymphocytes (%) (Auto) 19.1 % (20.0-45.0) L Monocytes (%) (Auto) 6.3 % (1.0-10.0) Eosinophils (%) (Auto) 1.1 % (0.0-3.0) Basophils (%) (Auto) 1.2 % (0.0-2.0) Sodium Level 138 MMOL/L (136-145) Potassium Level 4.0 MMOL/L (3.5-5.1) Chloride Level 105 MMOL/L (98-107) Carbon Dioxide Level 20 MMOL/L (21-32) L Anion Gap 13 mmol/L (5-15) Blood Urea Nitrogen 10 mg/dL (7-18) Creatinine 1.0 MG/DL (0.55-1.30) Estimat Glomerular Filtration Rate > 60 mL/min (>60) Glucose Level 137 MG/DL (74-106) H Calcium Level 9.6 MG/DL (8.5-10.1) Intake and Output 4/22/18 4/23/18 19:00 07:00 Intake Total 870 ml Balance 870 ml Intake Oral 720 ml IV Total 150 ml # Voids 3 5 # Bowel Movements 1 Objective General Appearance: WD/WN, no apparent distress, alert EENT: PERRL/EOMI, normal ENT inspection, TMs normal Neck: non-tender, normal alignment, supple, normal inspection Cardiovascular: normal peripheral pulses, normal rate, regular rhythm, no gallop/murmur, no JVD Respiratory/Chest: chest wall non-tender, lungs clear, normal breath sounds, no respiratory distress, no accessory muscle use Abdomen: normal bowel sounds, non tender, soft, no organomegaly, no mass Extremities: normal range of motion, non-tender 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 See GI note. (2) Diarrhea (3) Diabetes mellitus type II, uncontrolled Assessment & Plan: Continue novolog sliding scale. See endocrinology consult (4) Abdominal pain (5) HTN (hypertension) Assessment & Plan: Continue lisinopril (6) Diverticulosis (7) Vertigo Assessment & Plan: PRN meclizine. Await MRI brain Status: not improved ANTONIO CUTLER Jul 05, 2017 18:15
[2017-07-05 20:00] VITALS: BP 125/70
[2017-07-05] MEDS: TraZODone 100mg tab ORAL SCH (21:25)
[2017-07-05] MEDS: Norco 5mg/325mg tab ORAL PRN (22:10)
[2017-07-06] VITALS: BP 123/68
[2017-07-06] MEDS: Nateglinide 60mg tab ORAL SCH ×2 (06:25→12:06)
[2017-07-06] MEDS: sitaGLIPtin 25mg tab ORAL SCH (06:25)
[2017-07-06] MEDS: NovoLOG Insulin Flexpen SUBQ SCH ×2 (06:26→11:30)
[2017-07-06 08:00] VITALS: BP 116/64
[2017-07-06] MEDS: Lisinopril 2.5mg tab ORAL SCH (09:11)
[2017-07-06] MEDS: Heparin 5000 units/ml inj SUBQ SCH (09:14)
[2017-07-06 12:00] VITALS: BP 118/55
--- NOTE | 2017-07-06 15:47 | Internal Med Progress Note ---
Subjective Date of Service: Jul 06, 2017 Physician Name Ignacio Cutler Attending Physician Joesph Lewis MD Allergies: Coded Allergies: PENICILLINS (Verified Allergy, Severe, Hives, 03/21/14) ROS Limited/Unobtainable: No Constitutional: Reports: no symptoms HEENT: Reports: no symptoms Cardiovascular: Reports: no symptoms Respiratory: Reports: no symptoms Gastrointestinal/Abdominal: Reports: no symptoms Genitourinary: Reports: no symptoms Neurologic/Psychiatric: Reports: no symptoms Subjective 66 YO F admitted with nausea and vomiting. Now vertigo. Cover for Int Med-Dr Lewis. Await discharge home today Objective Last Vital Signs Date Time Temp Pulse Resp B/P (MAP) Pulse Ox O2 Delivery O2 Flow Rate FiO2 07/06/17 12:00 98.2 63 16 118/55 99 98.2 07/06/17 04:38 Room Air Intake and Output 07/05/17 07/06/17 19:00 07:00 Intake Total 360 ml Balance 360 ml Intake Oral 360 ml # Voids 3 1 # Bowel Movements 1 Objective General Appearance: WD/WN, no apparent distress, alert EENT: PERRL/EOMI, normal ENT inspection, TMs normal Neck: non-tender, normal alignment, supple, normal inspection Cardiovascular: normal peripheral pulses, normal rate, regular rhythm, no gallop/murmur, no JVD Respiratory/Chest: chest wall non-tender, lungs clear, normal breath sounds, no respiratory distress, no accessory muscle use Abdomen: normal bowel sounds, non tender, soft, no organomegaly, no mass Extremities: normal range of motion, non-tender 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 See GI note. (2) Diarrhea (3) Diabetes mellitus type II, uncontrolled Assessment & Plan: Continue novolog sliding scale. See endocrinology consult (4) Abdominal pain (5) HTN (hypertension) Assessment & Plan: Continue lisinopril (6) Diverticulosis (7) Vertigo Assessment & Plan: PRN meclizine. MRI brain=normal Status: stable Assessment/Plan D/C home today IGNACIO CUTLER Jul 06, 2017 15:47
--- NOTE | 2017-07-06 16:22 | GI Progress Note ---
Assessment/Plan Problems: (1) Bipolar depression ICD Codes: F31.30 - Bipolar depression SNOMED: 59390180 (2) Nausea & vomiting ICD Codes: R11.2 - Nausea with vomiting, unspecified SNOMED: 82367734 (3) Feeling faint ICD Codes: R42 - Dizziness and giddiness SNOMED: 792464256 (4) Vomiting ICD Codes: R11.10 - Vomiting, unspecified SNOMED: 497665264 (5) Abdominal pain ICD Codes: R10.9 - Unspecified abdominal pain SNOMED: 44568292 (6) Gastroparesis ICD Codes: K31.84 - Gastroparesis SNOMED: 897219568 Status: stable Status Narrative Discussed with Dr. Clarke. Assessment/Plan possible gastroparesis 2/2 uncontrolled DM okay for DC per GI standpoint symptomatic treatment DM management low dose reglan ATC adv to ADA diet electrolyte replacement H2B bowel regime fu labs outpatient GI procedures Subjective Gastrointestinal/Abdominal: Reports: no symptoms Objective Last 24 Hour Vital Signs Date Time Temp Pulse Resp B/P (MAP) Pulse Ox O2 Delivery O2 Flow Rate FiO2 07/06/17 12:00 98.2 63 16 118/55 99 98.2 07/06/17 09:11 116/64 07/06/17 09:00 60 116/64 07/06/17 08:00 98.6 60 14 116/64 96 98.6 07/06/17 04:38 Room Air 07/06/17 01:15 17 Room Air 07/06/17 00:00 98.0 65 15 123/68 94 98.0 07/05/17 23:09 98.2 07/05/17 22:10 98.2 07/05/17 20:00 Room Air 07/05/17 20:00 98.2 62 16 125/70 95 98.2 Intake and Output 07/05/17 07/06/17 19:00 07:00 Intake Total 360 ml Balance 360 ml Intake Oral 360 ml # Voids 3 1 # Bowel Movements 1 Height (Feet): 5 Height (Inches): 3.00 Weight (Pounds): 192 General Appearance: WD/WN, no apparent distress, alert Cardiovascular: normal rate Respiratory/Chest: normal breath sounds, no respiratory distress Abdominal Exam: normal bowel sounds, non tender, soft Extremities: normal range of motion, non-tender Wagoner,Cierra William N.P. Jul 06, 2017 16:22
--- NOTE | 2017-07-08 10:45 | Discharge Summary ---
Discharge Summary Discharge Summary Discharge Summary DATE OF ADMISSION: 06/30/2017 DATE OF DISCHARGE: 07/06/2017 CONSULTANTS: Dr. Milo Arceo BRIEF HOSPITAL COURSE: Patient is a 66-year-old -[place] female, who presented with chief complaint of abdominal pain, nausea and vomiting. Symptoms began 2 days prior to admission, patient was complaining of nausea and vomiting and had generalized abdominal pain. She has medical history significant for diabetes and hypertension. On evaluation at ED, blood work was stable, urinalysis was negative, hCG 1, lipase was within normal limits. CT scan of the abdomen and pelvis revealed diverticulosis without diverticulitis. She was admitted for evaluation of abdominal pain, with nausea and vomiting. GI was consulted. She had uncontrolled diabetes, nausea and vomiting possibly secondary to gastroparesis. She was given low-dose Reglan, and Pepcid. Abdominal ultrasound showed no evidence of cholelithiasis or sonographic evidence to suggest acute cholecystitis. No sonographic evidence of acute intra-abdominal pathology. She was also seen by Dr. Arceo for diabetes management, she was started on Januvia 25 mg daily and Starlix 60 mg twice a day. Blood glucose was monitored and was given insulin sliding scale. She complained of vertigo, MRI of the brain was negative for acute intracranial bleed, mass effect or hemorrhage. She was given when necessary meclizine. She was continued on her antihypertensives lisinopril and amlodipine. Nausea and vomiting resolved. She was eventually discharged home. FINAL DIAGNOSES: Nausea and vomiting possibly secondary to diabetic gastroparesis Diabetes mellitus type 2 out of control Hypertension Diverticulosis Vertigo Possible gastroenteritis DISPOSITION: Patient was discharged home. DISCHARGE MEDICATIONS: Refer to Discharge Medication List. DISCHARGE INSTRUCTIONS: Follow up with PCP in a week. I have been assigned to dictate discharge summary on this account, and I was not involved in the patient's management. Mar Pepe NP Jul 08, 2017 10:45
== END 2017-07-06 14:45 | disposition home or self-care (01) | DRG 48 ==
LOC: EMR 15:38 → EDBEDREQ 16:36 → 4W 17:17 → EDBEDREQ 17:45 → OBSVTOIN 20:02
DX: E11.43 Type 2 diabetes mellitus with diabetic autonomic (poly)neuropathy (principal); E11.65 Type 2 diabetes mellitus with hyperglycemia; I10 Essential (primary) hypertension; K31.84 Gastroparesis; K52.9 Noninfective gastroenteritis and colitis, unspecified; R10.9 Unspecified abdominal pain; K57.90 Diverticulosis of intestine, part unspecified, without perforation or abscess without bleeding; I25.10 Atherosclerotic heart disease of native coronary artery without angina pectoris; Z95.5 Presence of coronary angioplasty implant and graft; J44.9 Chronic obstructive pulmonary disease, unspecified; Z88.0 Allergy status to penicillin; Z91.14 Patient's other noncompliance with medication regimen; F17.200 Nicotine dependence, unspecified, uncomplicated; F31.30 Bipolar disorder, current episode depressed, mild or moderate severity, unspecified; R42 Dizziness and giddiness
CPT/HCPCS: 36415; 70551; 74176; 76700; 80048; 80053; 81003; 82150; 82962; 83036; 83690; 84443; 84702; 85025; 85610; 85730; 93005; 93970; 99285; J1815; J2405

== ENCOUNTER 2019-05-21 13:04 | Emergency (ER) | payer OTHER, MEDICAID ==
[~2019-05-21] VITALS: Ht 160 cm; Wt 81.2 kg
[2019-05-21] MEDS ORDERED: LEVEMIR100 UNIT/1 SUBQ (13:14)
[2019-05-21 13:30] VITALS: BP 126/74
[2019-05-21] MEDS ORDERED: Ipratropium 0.02% Inh Soln 2.5ml UD HHN SCH (13:30)
[2019-05-21] MEDS ORDERED: Ketorolac 30mg Inj IV ONE ×2 (13:30→16:30)
[2019-05-21] MEDS ORDERED: Omnipaque-300 100ml vial INJ PRN (13:30)
[2019-05-21] MEDS ORDERED: Albuterol ud Inhalation HHN ONE (13:30)
--- NOTE | 2019-05-21 13:39 | Emergency Room Report ---
History of Present Illness General Chief Complaint: Flu Like Symptoms Source: Medical Record Present Illness HPI 68-year-old female with history of COPD who continues to smoke cigarettes and 2 stent placements as well as insulin-dependent diabetes and hypertension here complaining of 2 weeks of generalized body ache, cough and congestion with phlegm production. Patient has been taking [id number] medication with minimal symptom relief. Patient not complains of chest pain, shortness of breath, generalized abdominal pain. Denies any nausea vomiting or diarrhea. Denies bloody stool. Denies any recent travel. Patient is afebrile. Denies pleuritic chest pain, calf tenderness. Reports that symptoms started with sore throat. Has full range of motion of neck and denies any neck stiffness. Appears to be in mild distress. Denies coming in contact with people who have recently traveled. Allergies: Coded Allergies: PENICILLINS (Verified Allergy, Severe, Hives, 03/21/14) Patient History Past Medical History: see triage record Past Surgical History: other - stent placement Pertinent Family History: none Social History: Reports: smoking Now: No Immunizations: UTD Reviewed Nursing Documentation: PMH: Agreed; PSxH: Agreed Nursing Documentation-PMH Past Medical History: No History, Except For Hx Cardiac Problems: Yes - Stent Hx Hypertension: Yes Hx COPD: Yes Hx Diabetes: Yes Hx Cancer: No Hx Gastrointestinal Problems: No Hx Neurological Problems: No Review of Systems All Other Systems: negative except mentioned in HPI Physical Exam Vital Signs Date Time Temp Pulse Resp B/P (MAP) Pulse Ox O2 Delivery O2 Flow Rate FiO2 05/21/19 13:09 98.4 82 18 126/74 (91) 97 Room Air Sp02 EP Interpretation: reviewed, normal General Appearance: alert, GCS 15, non-toxic, mild distress Head: normocephalic, atraumatic Eyes: bilateral eye normal inspection, bilateral eye PERRL ENT: hearing grossly normal, normal pharynx, no angioedema, normal voice Neck: full range of motion, supple, supple/symm/no masses Respiratory: chest non-tender, lungs clear, normal breath sounds, no rhonchi, no respiratory distress, no retraction, no wheezing, speaking full sentences Cardiovascular #1: regular rate, rhythm, no edema, no murmur, normal capillary refill Gastrointestinal: normal bowel sounds, non tender, soft, no mass, no peritonitis, no bruit, non-distended, no guarding, no pulsatile mass, no rebound Rectal: deferred Genitourinary: no CVA tenderness Musculoskeletal: back normal, no calf tenderness Neurologic: alert, motor strength/tone normal, oriented x3, sensory intact, responsive, speech normal Psychiatric: judgement/insight normal, memory normal, mood/affect normal, no suicidal/homicidal ideation Skin: no rash, normal color Lymphatic: no adenopathy Medical Decision Making PA Attestation All diagnoses and treatment plans were reviewed and discussed with my supervising physician Dr. Loera Diagnostic Impression: Primary Impression: Acute bacterial bronchitis Additional Impression: Diverticulosis ER Course 68-year-old female with history of COPD who continues to smoke cigarettes and 2 stent placements as well as insulin-dependent diabetes and hypertension here complaining of 2 weeks of generalized body ache, cough and congestion with phlegm production. Patient has been taking [id number] medication with minimal symptom relief. Patient not complains of chest pain, shortness of breath, generalized abdominal pain. Denies any nausea vomiting or diarrhea. Denies bloody stool. Denies any recent travel. Patient is afebrile. Denies pleuritic chest pain, calf tenderness. Reports that symptoms started with sore throat. Has full range of motion of neck and denies any neck stiffness. Appears to be in mild distress. Denies coming in contact with people who have recently traveled. Ddx considered but are not limited to: NV, Angina, COPD, GERD, bronchitis, diverticulitis, diverticulosis Vital signs: are WNL, pt. is afebrile H&PE are most consistent with diverticulosis without diverticulitis, acute bacterial bronchitis due to patient being a smoker ORDERS: EKG, Chest XR, cardiac labs, CT chest abdomen pelvis with contrast, Azithromycin , Phenergan DM, albuterol, Colace ED INTERVENTIONS: NS bolus, Toradol, Zofran, Pepcid DISCHARGE: At this time pt. is stable for d/c to home. Will provide printed patient care instructions, and any necessary prescriptions. 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 Interpretation: no consolidation, no effusion, no pneumothorax, no acute cardiopulmonary disease Impression: No acute disease Electronically Signed by: Sanjay Booker PA-C CT/MRI/US Diagnostic Results CT/MRI/US Diagnostic Results : Imaging Test Ordered: CT chest abdomen pelvis with contrast Impression CT Chest abdomen and pelvis with IV contrast Comparison CT chest 05/12/[address] abdomen and pelvis 06/30/2017 Impression -Prominent colonic stool burden, which could be a cause for pain. -Otherwise no acute abnormality definitively identified to account for patient presentation. - Centrilobular emphysema. -Recommend evaluation to determine if this patient would meet criteria for inclusion in an annual low dose CT chest lung cancer screening protocol. -Mild coronary artery calcifications. -Hysterectomy. - Colonic diverticulosis without acute diverticulitis. - Appendectomy. - Multilevel age-related degenerative spine findings. Last Vital Signs Date Time Temp Pulse Resp B/P (MAP) Pulse Ox O2 Delivery O2 Flow Rate FiO2 05/21/19 13:09 98.4 82 18 126/74 (91) 97 Room Air Status: improved Disposition: HOME, SELF-CARE Condition: Stable Scripts Docusate Sodium* (COLACE*) 100 Mg Capsule 100 MG ORAL TWICE A DAY, #14 CAP Prov: Sanjay Myles 05/21/19 Albuterol Sulfate (VENTOLIN HFA) 18 Gm Hfa.aer.ad 2 PUFFS INH EVERY 6 HOURS, #18 GM 0 Refills Prov: Sanjay Myles 05/21/19 D-Methorphan Hb/Prometh Hcl* (PROMETHAZINE-DM SYRUP*) 118 Ml Syrup 5 ML ORAL Q6H PRN for For Cough, #200 ML 0 Refills Prov: Sanjay Myles 05/21/19 Azithromycin* (ZITHROMAX*) 250 Mg Tablet 250 MG ORAL DAILY, #6 TAB 0 Refills Take two tables once daily for 1 day, then one tablet once daily for 4 days. 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
[2019-05-21] MEDS ORDERED: Albuterol ud Inhalation ONE ×3 (13:40→13:42)
[2019-05-21] MEDS ORDERED: Ipratropium 0.02% Inh Soln 2.5ml UD ONE ×2 (13:40→13:42)
[2019-05-21] MEDS: Albuterol/Ipratropium 3ml neb HHN SCH (13:53)
[2019-05-21 14:53] LABS: BASOPHILS % (AUTO) 1.6 % (0.0-2.0); EOSINOPHILS % (AUTO) 2.8 % (0.0-3.0); HEMATOCRIT 37.3 % (37.0-47.0); HEMOGLOBIN 12.2 G/DL (12.0-16.0); LYMPHOCYTES % (AUTO) 33.4 % (20.0-45.0); MEAN CORPUSCULAR VOLUME 73 FL (80-99); MONOCYTES % (AUTO) 4.8 % (1.0-10.0); NEUTROPHILS % (AUTO) 57.3 % (45.0-75.0); PLATELET COUNT 200 K/UL (150-450); RED CELL DISTRIBUTION WIDTH 13.7 % (11.6-14.8); WHITE BLOOD COUNT 8.8 K/UL (4.8-10.8)
[2019-05-21 15:05] LABS: ALANINE AMINOTRANSFERASE 26 U/L (12-78); ALBUMIN 3.4 G/DL (3.4-5.0); ALBUMIN/GLOBULIN RATIO 0.9 (1.0-2.7); ALKALINE PHOSPHATASE 94 U/L (46-116); ANION GAP 8 mmol/L (5-15); ASPARTATE AMINO TRANSFERASE 26 U/L (15-37); BILIRUBIN,TOTAL 0.2 MG/DL (0.2-1.0); BLOOD UREA NITROGEN 14 mg/dL (7-18); CALCIUM 9.8 MG/DL (8.5-10.1); CARBON DIOXIDE 28 MMOL/L (21-32); CHLORIDE 111 MMOL/L (98-107); POTASSIUM 4.5 MMOL/L (3.5-5.1); SODIUM 147 MMOL/L (136-145)
[2019-05-21 15:27] VITALS: BP 133/85
[2019-05-21] MEDS ORDERED: DiphenhydrAMINE 25mg Tab ORAL ONE (16:30)
--- NOTE | 2019-05-21 17:23 | Diagnostic Imaging Report ---
INDICATION: Cough congestion abdominal pain TECHNIQUE: Continuous helical transaxial imaging of the chest, abdomen and pelvis was obtained from the lung bases to the pubic symphysis during intravenous contrast administration. Multiple phases of enhancement obtained. Coronal 2-D reformats were also obtained. Study obtained in a Siemens sensation [address] Automatic Exposure Control was utilized. Total Dose length Product (DLP): 790.[address] Dose Index Volume (CTDIvol): 42.7 mGy COMPARISON: None FINDINGS: CT CHEST: No infiltrate identified. Centrilobular emphysema demonstrated in the upper lobes. No adenopathy or abnormal pleural fluid identified. There is generalized cardiomegaly noted. The aorta shows mural calcium mild in degree. CT ABDOMEN & PELVIS: No abnormalities of the liver or spleen, pancreas, gallbladder, adrenal glands or kidneys are identified. There is no hydronephrosis. Appendectomy noted. Few diverticula noted in the colon. Mild aortoiliac calcifications are present. There is no free fluid. Accessory spleen noted. No evidence of bowel obstruction. The urinary bladder is unremarkable. Uterus is absent. Multilevel vertebral endplate osteophytes demonstrated mostly within the thoracic spine. Impression: No acute findings identified within the chest abdomen or pelvis. COPD/emphysema. Arterial vascular disease Diverticulosis of the colon. Status post appendectomy and status post hysterectomy The CT scanner at [facility] is accredited by the [employer] and the scans are performed using dose optimization techniques as appropriate to a performed exam including Automatic Exposure control.
[2019-05-21] MEDS ORDERED: PROMETHAZINE-D118 ML ORAL (17:35)
[2019-05-21] MEDS ORDERED: VENTOLIN HFA18 GM INH (17:35)
[2019-05-21] MEDS ORDERED: ZITHROMAX250 MG ORAL (17:35)
[2019-05-21] MEDS ORDERED: COLACE100 MG ORAL (17:35)
[2019-05-21 17:48] VITALS: BP 130/81
--- NOTE | 2019-05-22 13:03 | Diagnostic Imaging Report ---
Indication: Dyspnea Comparison: 06/11/2017 A single view chest radiograph was obtained. Findings: Cardiomediastinal appearance is within normal limits for age. The lungs are clear. Pulmonary vascularity is appropriate. The diaphragmatic contour is smooth and costophrenic angles are sharp. No pleural effusions are identified. The bones are unremarkable. Impression: No acute findings
== END 2019-05-21 17:48 | disposition home or self-care (01) ==
LOC: EMR 13:46
DX: J20.9 Acute bronchitis, unspecified (principal); K57.90 Diverticulosis of intestine, part unspecified, without perforation or abscess without bleeding; Z88.0 Allergy status to penicillin; J44.9 Chronic obstructive pulmonary disease, unspecified; E11.9 Type 2 diabetes mellitus without complications; I10 Essential (primary) hypertension; Z95.5 Presence of coronary angioplasty implant and graft; F17.200 Nicotine dependence, unspecified, uncomplicated; Z90.710 Acquired absence of both cervix and uterus; Z90.89 Acquired absence of other organs
CPT/HCPCS: 36415; 71045; 71260; 74177; 80053; 82962; 83690; 83880; 84484; 85025; 86710; 96361; 96374; 96375; 96376; 99284; J1885; J2405; J7030; Q9967; S0028; J7620